=== PATIENT | female | born 1990 | race Caucasian/White ===

== ENCOUNTER 2017-02-22 13:51 | Inpatient (IN) | payer BC ==
[2017-02-22 17:08] LABS: BASO % 0.2 % (0.0-2.0); EOS # 0.1 K/uL (0.0-0.7); EOS % 1.5 % (0.0-4.0); HEMATOCRIT 35.4 % (34.0-47.0); LYMPH % 17.1 % (20.0-40.0); MEAN CELL VOLUME 81.3 fL (81.0-99.0); MEAN CORPUSCULAR HEMOGLOBIN 26.9 pg (27.0-31.0); MEAN CORPUSCULAR HGB CONC 33.1 g/dL (33.0-37.0); MEAN PLATELET VOLUME 9.7 fL (7.2-11.7); MONO # 0.3 K/uL (0.0-0.8); MONO % 5.4 % (0.0-10.0); RED CELL DISTRIBUTION WIDTH 13.8 % (11.5-14.5); WHITE BLOOD COUNT 5.6 K/uL (4.8-10.8)
[2017-02-22 17:12] LABS: RBC URINE < 1 /hpf (0-3); URINE BACTERIA RARE (<OCC); URINE BILIRUBIN NEGATIVE (NEGATIVE); URINE COLOR Yellow (YELLOW); URINE GLUCOSE (UA) NORMAL (Normal); URINE KETONE NEGATIVE (NEGATIVE); URINE LEUKOCYTE ESTERASE NEG Leu/uL (Negative); URINE PROTEIN NEGATIVE (NEGATIVE); URINE UROBILINOGEN NORMAL mg/dL (0.2-1.0); WBC URINE < 1 /hpf (0-5)
[2017-02-22 17:14] LABS: URINE BLOOD NEGATIVE (NEGATIVE)
[2017-02-22 17:21] LABS: ALKALINE PHOSPHATASE 104 U/L (38-126); ALT/SGPT 34 U/L (9-52); AST/SGOT 40 U/L (14-36); BILIRUBIN,TOTAL 0.6 mg/dL (0.2-1.3); BLOOD UREA NITROGEN 12 mg/dL (7-17); CALCIUM 7.8 mg/dl (8.6-10.4); CARBON DIOXIDE 26 mmol/L (22-30); CHLORIDE 101 mmol/L (98-107); GFR AFRICAN-AMERICAN > 60; GLUCOSE,RANDOM 76 mg/dL (65-105); POTASSIUM 3.7 mmol/L (3.6-5.2); SODIUM 133 mmol/L (132-148); TOTAL PROTEIN 8.4 g/dL (6.3-8.3)
[2017-02-22 17:23] LABS: INR 1.1
[2017-02-22 17:29] LABS: ALB/GLOB RATIO 0.7 (1.0-2.1)
--- NOTE | 2017-02-22 18:34 | C.PDOC ---
History Of Present Illness Pt c/o left sided chest pain. Time Seen by Provider: 02/22/17 16:02 Chief Complaint (Nursing): Chest Pain History Per: Patient Onset/Duration Of Symptoms: Days (about 2 months), Persistent Current Symptoms Are (Timing): Still Present Severity: Moderate Quality: "Pain" Modifying Factors: Other Indicated Below Exacerbating Factors: Movement, Deep Breathing Alleviating Factors: None Additional History Per: Prior Records Past Medical History Reviewed: Historical Data, Nursing Documentation, Vital Signs Vital Signs: Last Vital Signs Temp 98.2 F 02/22/17 14:30 Pulse 82 02/22/17 18:28 Resp 16 02/22/17 18:28 BP 102/62 02/22/17 18:28 Pulse Ox 97 02/22/17 18:36 - Medical History PMH: No Chronic Diseases Surgical History: Appendectomy, Family History: States: Unknown Family Hx - Social History Hx Tobacco Use: No Hx Alcohol Use: No Hx Substance Use: No - Immunization History Hx Tetanus Toxoid Vaccination: No Hx Influenza Vaccination: No Hx Pneumococcal Vaccination: No Review Of Systems Except As Marked, All Systems Reviewed And Found Negative. Constitutional: Negative for: Fever Cardiovascular: Positive for: Chest Pain (left) Respiratory: Positive for: Pleuritic Pain (left). Negative for: Hemoptysis Gastrointestinal: Negative for: Vomiting, Abdominal Pain, Diarrhea Musculoskeletal: Negative for: Neck Pain, Back Pain, Leg Pain Skin: Negative for: Rash Neurological: Negative for: Weakness, Numbness, Seizures, Altered Mental Status Physical Exam - Physical Exam Appears: Non-toxic, No Acute Distress Skin: Normal Color, Warm, Dry, No Rash Head: Atraumatic, Normacephalic Eye(s): bilateral: Normal Inspection, PERRL, EOMI Neck: Normal ROM, Supple Chest: Symmetrical, No Deformity, No Tenderness Cardiovascular: Rhythm Regular Respiratory: Normal Breath Sounds, No Accessory Muscle Use Gastrointestinal/Abdominal: Soft, No Tenderness Back: No CVA Tenderness Extremity: Normal ROM, No Pedal Edema, No Calf Tenderness Neurological/Psych: Oriented x3, Normal Motor, Normal Sensation ED Course And Treatment - Laboratory Results Result Diagrams: 02/22/17 17:02 02/22/17 17:02 Interpretation Of Abnormal: Elevated D-Dimer Urine POC: Negative ECG: Interpreted By Me, Viewed By Me ECG Rhythm: Sinus Rhythm ECG Interpretation: No Acute Changes Rate From EC O2 Sat by Pulse Oximetry: 97 Pulse Ox Interpretation: Normal Disposition - Disposition Disposition Time: 19:00 Condition: FAIR - Clinical Impression Clinical Impression: Left sided chest pain Physician Patient Turnover Patient Signed Over To: Julisa Sousa Handoff Comments: to f/up CTA of chest to r/o PE.
[2017-02-22] MEDS ORDERED: Iodixanol 320 MG/ML 100 ML BOTTLE IV ONE (18:46)
--- NOTE | 2017-02-22 19:52 | CT ---
EXAM: CT Angiography Chest With Intravenous Contrast CLINICAL HISTORY: 26 years old, female; Pain; Chest pain; Left-sided chest pain; Additional info: Left chest pain. Positive ddimer. R/O pe TECHNIQUE: Axial computed tomographic angiography images of the chest with intravenous contrast using pulmonary embolism protocol. All CT scans at this facility use one or more dose reduction techniques, viz.: automated exposure control; ma/kV adjustment per patient size (including targeted exams where dose is matched to indication; i.e. head); or iterative reconstruction technique. MIP reconstructed images were created and reviewed. Coronal and sagittal reformatted images were created and reviewed. CONTRAST: 100 mL of visipaque 320 administered intravenously. COMPARISON: No relevant prior studies available. FINDINGS: Pulmonary arteries: No pulmonary embolism. Aorta: No thoracic aortic aneurysm. No dissection. Lungs: Moderate left-sided pleural effusion, with adjacent compressive atelectasis. Consolidation of the left lung base is also noted. Pleural spaces: As above. Heart: Right atrial enlargement, without overall cardiomegaly. No significant pericardial effusion. Bones: No acute or subacute fracture. Lymph nodes: No pathologically enlarged lymph nodes. IMPRESSION: No pulmonary embolism. Moderate left-sided pleural effusion with adjacent compressive atelectasis and consolidation of the left lung base.
[2017-02-23 04:46] LABS: BASO % 0.3 % (0.0-2.0); EOS # 0.1 K/uL (0.0-0.7); EOS % 4.2 % (0.0-4.0); HEMATOCRIT 31.7 % (34.0-47.0); LYMPH # 0.8 K/uL (1.0-4.3); LYMPH % 23.2 % (20.0-40.0); MEAN CELL VOLUME 81.2 fL (81.0-99.0); MEAN CORPUSCULAR HEMOGLOBIN 26.3 pg (27.0-31.0); MEAN CORPUSCULAR HGB CONC 32.3 g/dL (33.0-37.0); MEAN PLATELET VOLUME 9.8 fL (7.2-11.7); MONO # 0.2 K/uL (0.0-0.8); MONO % 7.2 % (0.0-10.0); RED CELL DISTRIBUTION WIDTH 13.6 % (11.5-14.5); WHITE BLOOD COUNT 3.2 K/uL (4.8-10.8)
[2017-02-23 05:32] LABS: THYROID STIMULATING HORMONE 3.22 mIU/L (0.46-4.68)
[2017-02-23 05:49] LABS: ALB/GLOB RATIO 0.7 (1.0-2.1); ALKALINE PHOSPHATASE 99 U/L (38-126); ALT/SGPT 42 U/L (9-52); AST/SGOT 36 U/L (14-36); BILIRUBIN,TOTAL 0.5 mg/dL (0.2-1.3); BLOOD UREA NITROGEN 14 mg/dL (7-17); CALCIUM 7.5 mg/dl (8.6-10.4); CARBON DIOXIDE 24 mmol/L (22-30); CHLORIDE 105 mmol/L (98-107); GFR AFRICAN-AMERICAN > 60; GLUCOSE,RANDOM 79 mg/dL (65-105); POTASSIUM 3.9 mmol/L (3.6-5.2); SODIUM 140 mmol/L (132-148); TOTAL PROTEIN 7.3 g/dL (6.3-8.3)
--- NOTE | 2017-02-23 09:22 | CT ---
PROCEDURE: CT HEAD WITHOUT CONTRAST. HISTORY: DIZZINESS COMPARISON: None available. TECHNIQUE: Axial computed tomography images were obtained through the head/brain without intravenous contrast. Radiation dose: Total exam DLP = 773.51 mGy-cm. This CT exam was performed using one or more of the following dose reduction techniques: Automated exposure control, adjustment of the mA and/or kV according to patient size, and/or use of iterative reconstruction technique. FINDINGS: HEMORRHAGE: No intracranial hemorrhage. BRAIN: No mass effect or edema. No atrophy or chronic microvascular ischemic changes. VENTRICLES: Unremarkable. No hydrocephalus. CALVARIUM: Unremarkable. PARANASAL SINUSES: Unremarkable as visualized. No significant inflammatory changes. MASTOID AIR CELLS: Unremarkable as visualized. No inflammatory changes. OTHER FINDINGS: None. IMPRESSION: Normal CT of the Head. No intracranial mass, hemorrhage or evidence of acute infarct.
[2017-02-23] MEDS ORDERED: Enoxaparin 30 mg Syringe ONE (09:57)
[2017-02-23] MEDS ORDERED: Pantoprazole 40 mg EC Tab PO ONE (09:58)
[2017-02-23] MEDS ORDERED: Enoxaparin 60 mg Syringe SC SCH (10:00)
[2017-02-23] MEDS: Pantoprazole 40 mg EC Tab PO SCH (10:07)
--- NOTE | 2017-02-23 18:20 | CP.PCM.CON ---
History of Present Illness - History of Present Illness History of Present Illness: reason for consultation: pleural effusion 26-year-old female with no significant past medical history presented to emergency room complaining cough left-sided chest pain associated with shortness of breath and joint pains. patient states she continues to fell pain in her left chest that is worse with deep inspiration for the past 2-3 weeks She has flet intermittently short of breath and has intermittent fever but no cough. patient states she was admitted at [facility] and had extensive workup done Review of Systems - Review of Systems All systems: reviewed and no additional remarkable complaints except (shortness of breath, sharp left-sided chest pain on deep inspiration) Past Patient History - Past Medical History & Family History Past Medical History?: Yes - Past Social History Smoking Status: Never Smoked - CARDIAC Hx Cardiac Disorders: No - PULMONARY Hx Respiratory Disorders: No - NEUROLOGICAL Hx Neurological Disorder: No - HEENT Hx HEENT Problems: No - RENAL Hx Chronic Kidney Disease: No - ENDOCRINE/METABOLIC Hx Endocrine Disorders: No - HEMATOLOGICAL/ONCOLOGICAL Hx Blood Disorders: No - INTEGUMENTARY Hx Dermatological Problems: No - MUSCULOSKELETAL/RHEUMATOLOGICAL Hx Musculoskeletal Disorders: No Hx Falls: No - GASTROINTESTINAL Hx Gastrointestinal Disorders: No - GENITOURINARY/GYNECOLOGICAL Hx Genitourinary Disorders: No - PSYCHIATRIC Hx Psychophysiologic Disorder: No Hx Substance Use: No - SURGICAL HISTORY Hx Surgeries: Yes Hx Appendectomy: Yes Other/Comment: - ANESTHESIA Hx Anesthesia: Yes Hx Anesthesia Reactions: No Meds Allergies/Adverse Reactions: Allergies Allergy/AdvReac Type Severity Reaction Status Date / Time No Known Allergies Allergy Verified 02/22/17 14:34 - Medications Medications: Current Medications Aspirin (Aspirin) 325 mg PO DAILY [facility] Last Admin: 02/23/17 10:07 Dose: 325 mg Enoxaparin Sodium (Lovenox) 60 mg SC DAILY [facility] Last Admin: 02/23/17 10:07 Dose: 60 mg Cefepime HCl (Maxipime Iv 1 Gm Premix) 1 gm in 50 mls @ 100 mls/hr IVPB Q12H [facility] Meclizine HCl (Antivert) 25 mg PO TID [facility] Last Admin: 02/23/17 17:07 Dose: 25 mg Pantoprazole Sodium (Protonix Ec Tab) 40 mg PO DAILY [facility] Last Admin: 02/23/17 10:07 Dose: 40 mg Tramadol HCl (Ultram) 50 mg PO Q6H PRN PRN Reason: Pain, severe (8-10) Last Admin: 02/23/17 02:00 Dose: 50 mg Physical Exam - Head Exam Head Exam: ATRAUMATIC, NORMOCEPHALIC - Eye Exam Eye Exam: Normal appearance - ENT Exam ENT Exam: Mucous Membranes Moist - Neck Exam Neck exam: Positive for: Normal Inspection - Respiratory Exam Respiratory Exam: Decreased Breath Sounds - Cardiovascular Exam Cardiovascular Exam: REGULAR RHYTHM Results - Vital Signs Recent Vital Signs: Last Vital Signs Temp 98.8 F 02/23/17 16:30 Pulse 75 02/23/17 16:30 Resp 20 02/23/17 16:30 BP 93/59 L 02/23/17 16:30 Pulse Ox 100 02/23/17 16:30 - Labs Result Diagrams: 02/23/17 04:42 02/23/17 04:42 Labs: Laboratory Results - last 24 hr 02/23/17 02/23/17 02/23/17 04:42 04:42 04:42 WBC 3.2 L RBC 3.91 Hgb 10.3 L Hct 31.7 L MCV 81.2 MCH 26.3 L MCHC 32.3 L RDW 13.6 Plt Count 180 MPV 9.8 Neut % (Auto) 65.1 Lymph % (Auto) 23.2 [place] % (Auto) 7.2 Eos % (Auto) 4.2 H Baso % (Auto) 0.3 Neut # 2.1 Lymph # 0.8 L [place] # 0.2 Eos # 0.1 Baso # 0.0 ESR 52 H Sodium 140 Potassium 3.9 Chloride 105 Carbon Dioxide 24 Anion Gap 14 BUN 14 Creatinine 0.7 Est GFR ( Amer) > 60 Est GFR (Non-Af Amer) > 60 Random Glucose 79 Calcium 7.5 L Total Bilirubin 0.5 AST 36 ALT 42 Alkaline Phosphatase 99 C-React Prot High Sens 10.96 H Total Protein 7.3 Albumin 3.0 L Globulin 4.3 H Albumin/Globulin Ratio 0.7 L TSH 3rd Generation 3.22 Anti-Staphylolysin O 02/23/17 02/23/17 10:09 10:47 WBC RBC Hgb Hct MCV MCH MCHC RDW Plt Count MPV Neut % (Auto) Lymph % (Auto) [place] % (Auto) Eos % (Auto) Baso % (Auto) Neut # Lymph # [place] # Eos # Baso # ESR Sodium Potassium Chloride Carbon Dioxide Anion Gap BUN Creatinine Est GFR ( Amer) Est GFR (Non-Af Amer) Random Glucose Calcium Total Bilirubin AST ALT Alkaline Phosphatase C-React Prot High Sens 11.14 H Total Protein Albumin Globulin Albumin/Globulin Ratio TSH 3rd Generation Anti-Staphylolysin O Negative Assessment & Plan (1) Pleural effusion Status: Acute Comment: left-sided pleural effusion with consolidation. Rule out parapneumonic effusion. IV antibiotics. Thoracentesis by IR. Pro calcitonin level. Consider infectious disease consult. Autoimmune workup (2) Left sided chest pain Status: Acute
--- NOTE | 2017-02-23 18:56 | CP.PCM.HP ---
History of Present Illness - History of Present Illness History of Present Illness: A 26-year-old female with no past history presents with C/Ochest pain. C/Ochest pain for 2 months. Insidious in onset, progressive, persistent, near continuous, moderate in intensity, on the left side of the chest, nonradiating, aggravated with deep breathing and movement, intensity of 4/10, partly relieved by pain Medications. No C/Ofever, cough, dyspnea, PND, orthopnea, swelling of extremities. Patient states that she has been evaluated at a clinic in [facility] for the same. Present on Admission - Present on Admission Any Indicators Present on Admission: No Past Patient History - Past Medical History & Family History Past Medical History?: Yes - Past Social History Smoking Status: Never Smoked - CARDIAC Hx Cardiac Disorders: No - PULMONARY Hx Respiratory Disorders: No - NEUROLOGICAL Hx Neurological Disorder: No - HEENT Hx HEENT Problems: No - RENAL Hx Chronic Kidney Disease: No - ENDOCRINE/METABOLIC Hx Endocrine Disorders: No - HEMATOLOGICAL/ONCOLOGICAL Hx Blood Disorders: No - INTEGUMENTARY Hx Dermatological Problems: No - MUSCULOSKELETAL/RHEUMATOLOGICAL Hx Musculoskeletal Disorders: No Hx Falls: No - GASTROINTESTINAL Hx Gastrointestinal Disorders: No - GENITOURINARY/GYNECOLOGICAL Hx Genitourinary Disorders: No - PSYCHIATRIC Hx Psychophysiologic Disorder: No Hx Substance Use: No - SURGICAL HISTORY Hx Surgeries: Yes Hx Appendectomy: Yes Other/Comment: - ANESTHESIA Hx Anesthesia: Yes Hx Anesthesia Reactions: No Meds Allergies/Adverse Reactions: Allergies Allergy/AdvReac Type Severity Reaction Status Date / Time No Known Allergies Allergy Verified 02/22/17 14:34 Physical Exam - Constitutional Appears: Well - Head Exam Head Exam: ATRAUMATIC, NORMAL INSPECTION, NORMOCEPHALIC - Eye Exam Eye Exam: EOMI, Normal appearance, PERRL Pupil Exam: NORMAL ACCOMODATION, PERRL - ENT Exam ENT Exam: Mucous Membranes Moist, Normal Exam - Neck Exam Neck exam: Positive for: Normal Inspection - Respiratory Exam Respiratory Exam: Decreased Breath Sounds - Cardiovascular Exam Cardiovascular Exam: REGULAR RHYTHM, +S1, +S2 - GI/Abdominal Exam GI & Abdominal Exam: Diminished Bowel Sounds, Soft - Rectal Exam Rectal Exam: Deferred Results - Vital Signs Recent Vital Signs: Last Vital Signs Temp 98.8 F 02/23/17 16:30 Pulse 75 02/23/17 16:30 Resp 20 02/23/17 16:30 BP 93/59 L 02/23/17 16:30 Pulse Ox 100 02/23/17 16:30 - Labs Result Diagrams: 02/26/17 08:20 02/23/17 04:42 Labs: Laboratory Results - last 24 hr 02/23/17 02/23/17 02/23/17 04:42 04:42 04:42 WBC 3.2 L RBC 3.91 Hgb 10.3 L Hct 31.7 L MCV 81.2 MCH 26.3 L MCHC 32.3 L RDW 13.6 Plt Count 180 MPV 9.8 Neut % (Auto) 65.1 Lymph % (Auto) 23.2 [place] % (Auto) 7.2 Eos % (Auto) 4.2 H Baso % (Auto) 0.3 Neut # 2.1 Lymph # 0.8 L [place] # 0.2 Eos # 0.1 Baso # 0.0 ESR 52 H Sodium 140 Potassium 3.9 Chloride 105 Carbon Dioxide 24 Anion Gap 14 BUN 14 Creatinine 0.7 Est GFR ( Amer) > 60 Est GFR (Non-Af Amer) > 60 Random Glucose 79 Calcium 7.5 L Total Bilirubin 0.5 AST 36 ALT 42 Alkaline Phosphatase 99 C-React Prot High Sens 10.96 H Total Protein 7.3 Albumin 3.0 L Globulin 4.3 H Albumin/Globulin Ratio 0.7 L TSH 3rd Generation 3.22 Anti-Staphylolysin O 02/23/17 02/23/17 10:09 10:47 WBC RBC Hgb Hct MCV MCH MCHC RDW Plt Count MPV Neut % (Auto) Lymph % (Auto) [place] % (Auto) Eos % (Auto) Baso % (Auto) Neut # Lymph # [place] # Eos # Baso # ESR Sodium Potassium Chloride Carbon Dioxide Anion Gap BUN Creatinine Est GFR ( Amer) Est GFR (Non-Af Amer) Random Glucose Calcium Total Bilirubin AST ALT Alkaline Phosphatase C-React Prot High Sens 11.14 H Total Protein Albumin Globulin Albumin/Globulin Ratio TSH 3rd Generation Anti-Staphylolysin O Negative
[2017-02-23] MEDS: Cefepime IV 1 gm in Dextrose 1 GM/50 ML BAG IVPB SCH (19:07)
--- NOTE | 2017-02-23 21:51 | CARD ---
APPROVED REPORT EKG Measurement Heart [id number] <Conclusion> Normal sinus rhythm Normal ECG
[2017-02-24] MEDS: Cefepime IV 1 gm in Dextrose 1 GM/50 ML BAG IVPB SCH ×2 (08:13→18:43)
[2017-02-24] MEDS: Pantoprazole 40 mg EC Tab PO SCH (10:20)
[2017-02-24] MEDS: Enoxaparin 40 mg Syringe SC SCH (10:20)
--- NOTE | 2017-02-24 12:31 | CP.PCM.PN ---
Subjective - Date & Time of Evaluation Date of Evaluation: 02/24/17 Time of Evaluation: 10:15 - Subjective Subjective: patient seen and examined Still complaining of pain on left side of the chest on deep inspiration Denies cough, denies fever chills For thoracentesis by IR Continue antibiotics Consider ID evaluation Objective - Vital Signs/Intake and Output Vital Signs (last 24 hours): Temp Pulse Resp BP Pulse Ox 98.1 F 66 20 100/63 99 02/24/17 08:45 02/24/17 08:45 02/24/17 08:45 02/24/17 08:45 02/24/17 08:45 Intake and Output: 02/24/17 02/24/17 06:59 18:59 Intake Total 540 Balance 540 - Medications Medications: Current Medications Aspirin (Aspirin) 325 mg PO DAILY [facility] Last Admin: 02/24/17 10:20 Dose: 325 mg Enoxaparin Sodium (Lovenox) 40 mg SC DAILY [facility] Last Admin: 02/24/17 10:20 Dose: Not Given Cefepime HCl (Maxipime Iv 1 Gm Premix) 1 gm in 50 mls @ 100 mls/hr IVPB Q12H [facility] Last Admin: 02/24/17 08:13 Dose: 100 mls/hr Meclizine HCl (Antivert) 25 mg PO TID [facility] Last Admin: 02/24/17 10:20 Dose: 25 mg Pantoprazole Sodium (Protonix Ec Tab) 40 mg PO DAILY [facility] Last Admin: 02/24/17 10:20 Dose: 40 mg Tramadol HCl (Ultram) 50 mg PO Q6H PRN PRN Reason: Pain, severe (8-10) Last Admin: 02/23/17 02:00 Dose: 50 mg - Labs Labs: 02/23/17 04:42 02/23/17 04:42 PT 11.9 SECONDS (9.7-12.2) 02/22/17 17:02 INR 1.1 02/22/17 17:02 APTT 32 SECONDS (21-34) 02/22/17 17:02 Assessment and Plan (1) Pleural effusion Status: Acute (2) Left sided chest pain Status: Acute
--- NOTE | 2017-02-24 13:27 | PCM.SURG1 ---
Surgeon's Initial Post Op Note - Surgeon's Notes Surgeon: Ananda Rea MD Gas Golf Cart Repairer: NONE Type of Anesthesia: Local Pre-Operative Diagnosis: Left pleural effusion Operative Findings: US showed a small left effusion Post-Operative Diagnosis: Left pleural effusion Operation Performed: US guided left thoracentesis Specimen/Specimens Removed: 500 cc of straw colored fluid Estimated Blood Loss: EBL {In ML}: 0 Blood Products Given: N/A Drains Used: No Drains Post-Op Condition: Fair Date of Surgery/Procedure: 02/24/17 Time of Surgery/Procedure: 13:20
[2017-02-24 14:12] LABS: BODY FLUID TYPE PLEURAL
[2017-02-24 15:39] LABS: BF GROSS APPEARANCE CLOUDY (CLEAR); BODY FLUID TOTAL COUNT 100 (0-0)
[2017-02-24 19:39] LABS: RNP Interpretation Positive (Negative)
[2017-02-24 19:39] LABS: Interpretation Negative (Negative)
--- NOTE | 2017-02-24 20:01 | CP.PCM.PN ---
Subjective - Date & Time of Evaluation Date of Evaluation: 02/24/17 Time of Evaluation: 11:40 - Subjective Subjective: clinically same Objective - Vital Signs/Intake and Output Vital Signs (last 24 hours): Temp Pulse Resp BP Pulse Ox 98.2 F 87 20 96/64 L 100 02/24/17 15:10 02/24/17 15:10 02/24/17 15:10 02/24/17 15:10 02/24/17 15:10 Intake and Output: 02/24/17 02/25/17 18:59 06:59 Intake Total 750 Balance 750 - Medications Medications: Current Medications Aspirin (Aspirin) 325 mg PO DAILY [facility] Last Admin: 02/24/17 10:20 Dose: 325 mg Enoxaparin Sodium (Lovenox) 40 mg SC DAILY [facility] Last Admin: 02/24/17 10:20 Dose: Not Given Cefepime HCl (Maxipime Iv 1 Gm Premix) 1 gm in 50 mls @ 100 mls/hr IVPB Q12H [facility] Last Admin: 02/24/17 18:43 Dose: 100 mls/hr Meclizine HCl (Antivert) 25 mg PO TID [facility] Last Admin: 02/24/17 14:54 Dose: 25 mg Pantoprazole Sodium (Protonix Ec Tab) 40 mg PO DAILY [facility] Last Admin: 02/24/17 10:20 Dose: 40 mg Tramadol HCl (Ultram) 50 mg PO Q6H PRN PRN Reason: Pain, severe (8-10) Last Admin: 02/23/17 02:00 Dose: 50 mg - Labs Labs: 02/23/17 04:42 02/23/17 04:42 PT 11.9 SECONDS (9.7-12.2) 02/22/17 17:02 INR 1.1 02/22/17 17:02 APTT 32 SECONDS (21-34) 02/22/17 17:02 - Constitutional Appears: Well - Head Exam Head Exam: ATRAUMATIC, NORMAL INSPECTION, NORMOCEPHALIC - Eye Exam Eye Exam: EOMI, Normal appearance, PERRL Pupil Exam: NORMAL ACCOMODATION, PERRL - ENT Exam ENT Exam: Mucous Membranes Moist, Normal Exam - Neck Exam Neck Exam: Full ROM, Normal Inspection. absent: Lymphadenopathy - Respiratory Exam Respiratory Exam: Decreased Breath Sounds - Cardiovascular Exam Cardiovascular Exam: REGULAR RHYTHM, +S1, +S2 - GI/Abdominal Exam GI & Abdominal Exam: Soft, Diminished Bowel Sounds - Rectal Exam Rectal Exam: Deferred Assessment and Plan (1) Left sided chest pain Status: Acute (2) Pleural effusion Status: Acute (3) Pneumonia Status: Acute (4) Systemic lupus Status: Acute (5) Weight loss, abnormal Status: Acute (6) Anemia Status: Resolved (7) Bacterial vaginosis Status: Acute - Assessment and Plan (Free Text) Plan: Patient examined. Patient better. EKG normal. CT angios chest shows moderate left-sided pleural effusion with left basal atelectasis and left-sided consolidation. Ultrasound-guided left pleural effusion thoracocentesis done under [place]. Continue aspirin. Continue cefepime. Continue supportive care.
--- NOTE | 2017-02-24 22:59 | CP.PCM.CON ---
History of Present Illness - History of Present Illness History of Present Illness: 26 yearold female with left sided chest pain and shortness of breath for the past two months. Patient was evaluated in the [facility] ER and found to have a left sided pleural effusion. Admission was advisedand hair loss. . Further history reveals a 15 pound weight loss, diffused joint pains and hair loss. Lab studies demonstrates an elevated sedimentation rate, positive IVIS with a titer of 1/320 and an a strongly positive DIRECT SERVICE PROVIDER greater than 8. Patient has Systemic Lupus. Review of Systems - Constitutional Constitutional: Malaise, Weight Loss, Weakness - Cardiovascular Cardiovascular: Palpitations - Respiratory Respiratory: Dyspnea on Exertion - Gastrointestinal Gastrointestinal: Cramping - Musculoskeletal Musculoskeletal: Arthralgias - Neurological Neurological: Weakness - Psychiatric Psychiatric: Change in Appetite Past Patient History - Past Medical History & Family History Past Medical History?: Yes - Past Social History Smoking Status: Never Smoked Chewing Tobacco Use: No Cigar Use: No Alcohol: Occasional Drugs: Denies - CARDIAC Hx Cardiac Disorders: No - PULMONARY Hx Respiratory Disorders: No - NEUROLOGICAL Hx Neurological Disorder: No - HEENT Hx HEENT Problems: No - RENAL Hx Chronic Kidney Disease: No - ENDOCRINE/METABOLIC Hx Endocrine Disorders: No - HEMATOLOGICAL/ONCOLOGICAL Hx Blood Disorders: No - INTEGUMENTARY Hx Dermatological Problems: No - MUSCULOSKELETAL/RHEUMATOLOGICAL Hx Musculoskeletal Disorders: No Hx Falls: No - GASTROINTESTINAL Hx Gastrointestinal Disorders: No - GENITOURINARY/GYNECOLOGICAL Hx Genitourinary Disorders: No - PSYCHIATRIC Hx Psychophysiologic Disorder: No Hx Substance Use: No - SURGICAL HISTORY Hx Surgeries: Yes Hx Appendectomy: Yes Other/Comment: - ANESTHESIA Hx Anesthesia: Yes Hx Anesthesia Reactions: No Meds Allergies/Adverse Reactions: Allergies Allergy/AdvReac Type Severity Reaction Status Date / Time No Known Allergies Allergy Verified 02/22/17 14:34 - Medications Medications: Current Medications Aspirin (Aspirin) 325 mg PO DAILY [facility] Last Admin: 02/24/17 10:20 Dose: 325 mg Enoxaparin Sodium (Lovenox) 40 mg SC DAILY [facility] Last Admin: 02/24/17 10:20 Dose: Not Given Cefepime HCl (Maxipime Iv 1 Gm Premix) 1 gm in 50 mls @ 100 mls/hr IVPB Q12H [facility] Last Admin: 02/24/17 18:43 Dose: 100 mls/hr Meclizine HCl (Antivert) 25 mg PO TID [facility] Last Admin: 02/24/17 14:54 Dose: 25 mg Pantoprazole Sodium (Protonix Ec Tab) 40 mg PO DAILY [facility] Last Admin: 02/24/17 10:20 Dose: 40 mg Tramadol HCl (Ultram) 50 mg PO Q6H PRN PRN Reason: Pain, severe (8-10) Last Admin: 02/23/17 02:00 Dose: 50 mg Physical Exam - Constitutional Appears: Chronically Ill - Head Exam Head Exam: NORMOCEPHALIC - Eye Exam Eye Exam: PERRL Pupil Exam: NORMAL ACCOMODATION - ENT Exam ENT Exam: Normal Exam - Neck Exam Neck exam: Positive for: Normal Inspection - Respiratory Exam Respiratory Exam: Decreased Breath Sounds - Cardiovascular Exam Cardiovascular Exam: REGULAR RHYTHM - GI/Abdominal Exam GI & Abdominal Exam: Normal Bowel Sounds - Rectal Exam Rectal Exam: Deferred - Exam External exam: NORMAL EXTERNAL EXAM - Back Exam Back exam: paraspinal tenderness - Neurological Exam Neurological exam: Alert - Psychiatric Exam Psychiatric exam: Depressed - Skin Skin Exam: Dry Results - Vital Signs Recent Vital Signs: Last Vital Signs Temp 98.2 F 02/24/17 15:10 Pulse 98 H 02/24/17 19:40 Resp 18 02/24/17 19:40 BP 101/66 02/24/17 19:40 Pulse Ox 100 02/24/17 19:40 - Labs Result Diagrams: 02/23/17 04:42 02/23/17 04:42 Labs: Laboratory Results - last 24 hr 02/23/17 02/23/17 02/23/17 08:08 10:47 10:47 Fluid Source Fluid Appearance Fluid WBC Fluid RBC Fluid Tot Cell Count Fluid Neutrophils Fluid Lymphocytes Fld Monocyte/Macrophag Fluid Comment IVIS 6 Profile Positive H IVIS Titer 1:320 H IVIS Pattern Homogenous H SS-A Antibody <1.0 SS-B Ab Interp Negative SS-B Antibody <1.0 DIRECT SERVICE PROVIDER Antibody >8.0 H DIRECT SERVICE PROVIDER Antibody Interp Positive H Double Strand DNA Ab 172 H Anti-Staphylolysin O Negative 02/24/17 14:11 Fluid Source Pleural Fluid Appearance Cloudy Fluid WBC 1972.0 H Fluid RBC 346.0 H Fluid Tot Cell Count 100 H Fluid Neutrophils 1.0 H Fluid Lymphocytes 23.0 H Fld Monocyte/Macrophag 2 H Fluid Comment IVIS 6 Profile IVIS Titer IVIS Pattern SS-A Antibody SS-B Ab Interp SS-B Antibody DIRECT SERVICE PROVIDER Antibody DIRECT SERVICE PROVIDER Antibody Interp Double Strand DNA Ab Anti-Staphylolysin O Assessment & Plan (1) Systemic lupus Status: Acute (2) Anemia Status: Acute (3) Left sided chest pain Status: Acute (4) Pleural effusion Status: Acute
[2017-02-25] MEDS: Cefepime IV 1 gm in Dextrose 1 GM/50 ML BAG IVPB SCH (06:45)
[2017-02-25] MEDS: Pantoprazole 40 mg EC Tab PO SCH (10:00)
[2017-02-25] MEDS: Enoxaparin 40 mg Syringe SC SCH (10:01)
--- NOTE | 2017-02-25 10:08 | CP.PCM.PN ---
Subjective - Date & Time of Evaluation Date of Evaluation: 02/25/17 Time of Evaluation: 08:45 - Subjective Subjective: patient seen and examined Status post thoracentesis and 500 cc off straw-colored fluid removed Patient breathing better with less pain Blood work consistent with lupus erythematosus Objective - Vital Signs/Intake and Output Vital Signs (last 24 hours): Temp Pulse Resp BP Pulse Ox 98.5 F 83 16 100/62 97 02/25/17 07:25 02/25/17 07:25 02/25/17 07:25 02/25/17 07:25 02/25/17 07:25 Intake and Output: 02/25/17 02/25/17 06:59 18:59 Intake Total 600 Balance 600 - Medications Medications: Current Medications Aspirin (Aspirin) 325 mg PO DAILY [facility] Last Admin: 02/25/17 09:59 Dose: 325 mg Enoxaparin Sodium (Lovenox) 40 mg SC DAILY [facility] Last Admin: 02/25/17 10:01 Dose: 40 mg Cefepime HCl (Maxipime Iv 1 Gm Premix) 1 gm in 50 mls @ 100 mls/hr IVPB Q12H [facility] Last Admin: 02/25/17 06:45 Dose: 100 mls/hr Meclizine HCl (Antivert) 25 mg PO TID [facility] Last Admin: 02/25/17 09:59 Dose: 25 mg Pantoprazole Sodium (Protonix Ec Tab) 40 mg PO DAILY [facility] Last Admin: 02/25/17 10:00 Dose: 40 mg Tramadol HCl (Ultram) 50 mg PO Q6H PRN PRN Reason: Pain, severe (8-10) Last Admin: 02/23/17 02:00 Dose: 50 mg - Labs Labs: 02/23/17 04:42 02/23/17 04:42 PT 11.9 SECONDS (9.7-12.2) 02/22/17 17:02 INR 1.1 02/22/17 17:02 APTT 32 SECONDS (21-34) 02/22/17 17:02 - Head Exam Head Exam: ATRAUMATIC, NORMOCEPHALIC - Eye Exam Eye Exam: Normal appearance - ENT Exam ENT Exam: Mucous Membranes Moist - Neck Exam Neck Exam: Normal Inspection - Respiratory Exam Respiratory Exam: Clear to Ausculation Bilateral - Cardiovascular Exam Cardiovascular Exam: REGULAR RHYTHM - GI/Abdominal Exam GI & Abdominal Exam: Soft, Normal Bowel Sounds - Extremities Exam Extremities Exam: Normal Inspection - Neurological Exam Neurological Exam: Awake Assessment and Plan (1) Systemic lupus Assessment & Plan: Start IV steroids for now Followup if necessary Treatment for systemic lupus Status: Acute (2) Pleural effusion Status: Acute (3) Left sided chest pain Status: Acute
[2017-02-25] MEDS ORDERED: Azithromycin 500mg/250ML NS 500 MG/250 ML BAG IVPB SCH (12:15)
[2017-02-25] MEDS: MethylPREDNISolone 40 mg Vial IV SCH ×2 (13:00→21:03)
--- NOTE | 2017-02-25 13:56 | CP.PCM.CON ---
History of Present Illness - History of Present Illness History of Present Illness: INFECTIOUS DISEASE CONSULT; HPI; 26-year-old female was admitted to [facility] (Former[facility]) on 02/22/17 with left-sided chest pains and shortness of breath. Patient also complained of joint pains and weight loss of 15 pounds during the past [address] of the chest with PE protocol in ER showed no evidence of pulmonary embolism with moderate left-sided pleural effusion, compressive atelectasis and consolidation of the left lung base. Patient was empirically started on IV antibiotics including cefepime and Zithromax. Patient also had left-sided thoracentesis which showed no growth fluid/fluid for 24 hours. 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 Patient also is noted to be leukopenic with a WBC count of 3.2 and elevated CRP and high sedimentation rate. Patient continues to have left-sided pleuritic chest pain. Patient denies any previous history of TB or any other illness. PATIENT DENIES ANY SICK CONTACTS.IS AND HAS 2 KIDS 4 AND 7 YEARS OLD AND ALL ARE HEALTHY. Infectious disease consultation requested today by PMD for evaluation of left- sided pneumonia and left pleural effusion. PATIENT DENIES ANY RASH, HEADACHES, SEIZURE DISORDER OR ANY HISTORY OF TICK BITES IN THE PAST. PATIENT PRESENTLY ON IV CEFTRIAXONE 1 G OD/AND ZITHROMAX 500 MG ONCE A DAY DAILY. PATIENT DENIES ANY NIGHT SWEATS PATIENT DENIES ANY RECENT TRAVEL. PMH: No Chronic Diseases Surgical History: Appendectomy, Family History: States: Unknown Family Hx - Social History Hx Tobacco Use: No Hx Alcohol Use: No Hx Substance Use: No - Immunization History Hx Tetanus Toxoid Vaccination: No Hx Influenza Vaccination: No Hx Pneumococcal Vaccination: No ALLERGY; NKA. MEDS REVIEWED. PATIENT ALSO STARTED ON sOLU-mEDROL 40 MG EVERY 8 HOURLY NOTED. SEE MARS. Review of Systems - Constitutional Constitutional: Fever, Weight Loss (15 POUNDS DURING PAST 2 MONTHS.). absent: Headache - EENT Eyes: absent: Change in Vision, Floaters, Other Visual Disturbances Ears: absent: Ear Discharge, Ear Pain Nose/Mouth/Throat: absent: Dysphagia, Mouth Lesions, Sore Throat, Neck Pain - Cardiovascular Cardiovascular: Chest Pain (LEFT PLEURITIC CHEST PAIN.), Dyspnea - Respiratory Respiratory: Cough, Dyspnea on Exertion. absent: Hemoptysis - Gastrointestinal Gastrointestinal: absent: Abdominal Pain, Diarrhea, Dysphagia, Nausea, Vomiting - Genitourinary Genitourinary: absent: Dysuria, Hematuria - Musculoskeletal Musculoskeletal: Myalgias, Stiffness (ARTHRALGIAS OF HANDS AND FINGERS, BOTH KNEES, ANKLES.) - Integumentary Integumentary: Change in Hair (HAIR LOSS.). absent: Rash - Neurological Neurological: absent: Headaches - Hematologic/Lymphatic Hematologic: As Per HPI. absent: Easy Bleeding, Lymphadenopathy Past Patient History - Past Medical History & Family History Past Medical History?: Yes - Past Social History Smoking Status: Never Smoked Chewing Tobacco Use: No Cigar Use: No Alcohol: Occasional Drugs: Denies - CARDIAC Hx Cardiac Disorders: No - PULMONARY Hx Respiratory Disorders: No - NEUROLOGICAL Hx Neurological Disorder: No - HEENT Hx HEENT Problems: No - RENAL Hx Chronic Kidney Disease: No - ENDOCRINE/METABOLIC Hx Endocrine Disorders: No - HEMATOLOGICAL/ONCOLOGICAL Hx Blood Disorders: No - INTEGUMENTARY Hx Dermatological Problems: No - MUSCULOSKELETAL/RHEUMATOLOGICAL Hx Musculoskeletal Disorders: No Hx Falls: No - GASTROINTESTINAL Hx Gastrointestinal Disorders: No - GENITOURINARY/GYNECOLOGICAL Hx Genitourinary Disorders: No - PSYCHIATRIC Hx Psychophysiologic Disorder: No Hx Substance Use: No - SURGICAL HISTORY Hx Surgeries: Yes Hx Appendectomy: Yes Other/Comment: - ANESTHESIA Hx Anesthesia: Yes Hx Anesthesia Reactions: No Meds Allergies/Adverse Reactions: Allergies Allergy/AdvReac Type Severity Reaction Status Date / Time No Known Allergies Allergy Verified 02/22/17 14:34 - Medications Medications: Current Medications Aspirin (Aspirin) 325 mg PO DAILY [facility] Last Admin: 02/25/17 09:59 Dose: 325 mg Enoxaparin Sodium (Lovenox) 40 mg SC DAILY [facility] Last Admin: 02/25/17 10:01 Dose: 40 mg Ceftriaxone Sodium 1 gm/ (Sodium Chloride) 100 mls @ 100 mls/hr IVPB DAILY [facility] Azithromycin (Zithromax 500mg In Ns Addvantage) 500 mg in 250 mls @ 167 mls/hr IVPB Q24H [facility] Meclizine HCl (Antivert) 25 mg PO TID [facility] Last Admin: 02/25/17 09:59 Dose: 25 mg Methylprednisolone (Solu-Medrol) 40 mg IV Q8 [facility] Pantoprazole Sodium (Protonix Ec Tab) 40 mg PO DAILY [facility] Last Admin: 02/25/17 10:00 Dose: 40 mg Tramadol HCl (Ultram) 50 mg PO Q6H PRN PRN Reason: Pain, severe (8-10) Last Admin: 02/23/17 02:00 Dose: 50 mg Physical Exam - Constitutional Appears: No Acute Distress, Cachectic - Head Exam Head Exam: NORMAL INSPECTION - Eye Exam Eye Exam: EOMI, PERRL. absent: Scleral icterus - ENT Exam ENT Exam: Normal Oropharynx - Neck Exam Neck exam: Positive for: Normal Inspection. Negative for: Meningismus - Respiratory Exam Respiratory Exam: Decreased Breath Sounds (BRONCHIAL BREATH SOUNDS LEFT BASE.) - Cardiovascular Exam Cardiovascular Exam: REGULAR RHYTHM, +S1, +S2 - GI/Abdominal Exam GI & Abdominal Exam: Normal Bowel Sounds, Soft. absent: Organomegaly, Tenderness - Extremities Exam Extremities exam: Positive for: pedal pulses present. Negative for: calf tenderness, pedal edema - Neurological Exam Neurological exam: Alert, CN II-XII Intact, Oriented x3, Reflexes Normal - Psychiatric Exam Psychiatric exam: Normal Mood - Skin Skin Exam: Dry, Normal Color, Warm Results - Vital Signs Recent Vital Signs: Last Vital Signs Temp 98.5 F 02/25/17 07:25 Pulse 83 02/25/17 07:25 Resp 16 02/25/17 07:25 BP 100/62 02/25/17 07:25 Pulse Ox 97 02/25/17 07:25 - Labs Result Diagrams: 02/26/17 08:20 02/23/17 04:42 Labs: Laboratory Results - last 24 hr 02/23/17 02/23/17 02/24/17 08:08 10:47 14:11 Fluid Source Pleural Fluid Appearance Cloudy Fluid WBC 1972.0 H Fluid RBC 346.0 H Fluid Tot Cell Count 100 H Fluid Neutrophils 1.0 H Fluid Lymphocytes 23.0 H Fld Monocyte/Macrophag 2 H Fluid Comment SS-A Antibody <1.0 SS-B Ab Interp Negative SS-B Antibody <1.0 [employer]TAINER INSPECTOR Antibody >8.0 H [employer] CONTAINER INSPECTOR Antibody Interp Positive H Double Strand DNA Ab 172 H - Imaging and Cardiology CT scan - chest Status: Report reviewed by me (SEE REPORT) Assessment & Plan (1) Pneumonia Status: Acute (2) Left sided chest pain Status: Acute (3) Pleural effusion Status: Acute (4) Systemic lupus Status: Acute (5) Anemia Status: Resolved (6) Weight loss, abnormal Status: Acute - Assessment and Plan (Free Text) Assessment: IMPRESSION; PNEUMONIA WITH LEFT PLEURAL EFFUSION. R/O ATYPICAL PNEUMONIA VS OCCULT TB VS VASCULITIS. SYSTEMIC LUPUS ERYTHEMATOSIS. ANEMIA. LEUKOPENIA WEIGHT LOSS PLAN. PANCULTURES ATYPICAL TITERS QUANTIferon GOLD TB TEST. CONTINUE iv CEFTRIAXONE 1 G ONCE A DAY DAILY.02/25/17 CONTINUE iv zITHROMAX 500 MG ONCE A DAY DAILY.02/22/17. HIV 1/2 ANTIBODY. LYMPHOCYTE SUBSET STUDIES. OPHTHALMOLOGICAL EVALUATION REQUESTED BY RHEUMATOLOGY DR APARICIO. PATIENT ON SOLU-mEDROL 40 MG EVERY 8 HOURLY PER PULMONARY. F/U PLEURAL FLUID CULTURES FOR MTB. RHEUMATOLOGY ON BOARD. WILL DISCUSS WITH YOU AND MAKE RECOMMENDATIONS NEEDED. THANK YOU
[2017-02-25] MEDS: Azithromycin 500 MG in Sodium Chloride 0.9% 250 ML IVPB SCH (14:49)
--- NOTE | 2017-02-25 18:35 | CP.PCM.PN ---
Subjective - Date & Time of Evaluation Date of Evaluation: 02/25/17 Time of Evaluation: 11:20 - Subjective Subjective: clinically same Objective - Vital Signs/Intake and Output Vital Signs (last 24 hours): Temp Pulse Resp BP Pulse Ox 98.3 F 86 18 103/67 99 02/25/17 17:34 02/25/17 17:34 02/25/17 17:34 02/25/17 17:34 02/25/17 17:34 Intake and Output: 02/25/17 02/25/17 06:59 18:59 Intake Total 600 700 Balance 600 700 - Medications Medications: Current Medications Aspirin (Aspirin) 325 mg PO DAILY [facility] Last Admin: 02/25/17 09:59 Dose: 325 mg Enoxaparin Sodium (Lovenox) 40 mg SC DAILY [facility] Last Admin: 02/25/17 10:01 Dose: 40 mg Ceftriaxone Sodium 1 gm/ (Sodium Chloride) 100 mls @ 100 mls/hr IVPB DAILY [facility] Last Admin: 02/25/17 13:57 Dose: 100 mls/hr Azithromycin 500 mg/ Sodium (Chloride) 250 mls @ 167 mls/hr IVPB Q24H [facility] Last Admin: 02/25/17 14:49 Dose: 167 mls/hr Meclizine HCl (Antivert) 25 mg PO TID [facility] Last Admin: 02/25/17 17:45 Dose: 25 mg Methylprednisolone (Solu-Medrol) 40 mg IV Q8 [facility] Last Admin: 02/25/17 13:00 Dose: 40 mg Pantoprazole Sodium (Protonix Ec Tab) 40 mg PO DAILY [facility] Last Admin: 02/25/17 10:00 Dose: 40 mg Tramadol HCl (Ultram) 50 mg PO Q6H PRN PRN Reason: Pain, severe (8-10) Last Admin: 02/23/17 02:00 Dose: 50 mg - Labs Labs: 02/23/17 04:42 02/23/17 04:42 PT 11.9 SECONDS (9.7-12.2) 02/22/17 17:02 INR 1.1 02/22/17 17:02 APTT 32 SECONDS (21-34) 02/22/17 17:02 - Constitutional Appears: Well - Head Exam Head Exam: ATRAUMATIC, NORMAL INSPECTION, NORMOCEPHALIC - Eye Exam Eye Exam: EOMI, Normal appearance, PERRL Pupil Exam: NORMAL ACCOMODATION, PERRL - ENT Exam ENT Exam: Mucous Membranes Moist, Normal Exam - Neck Exam Neck Exam: Full ROM, Normal Inspection. absent: Lymphadenopathy - Respiratory Exam Respiratory Exam: Clear to Ausculation Bilateral, NORMAL BREATHING PATTERN - Cardiovascular Exam Cardiovascular Exam: REGULAR RHYTHM, +S1, +S2. absent: Murmur - GI/Abdominal Exam GI & Abdominal Exam: Soft, Normal Bowel Sounds. absent: Tenderness - Rectal Exam Rectal Exam: Deferred - Extremities Exam Extremities Exam: Full ROM, Normal Capillary Refill, Normal Inspection. absent : Joint Swelling, Pedal Edema - Back Exam Back Exam: NORMAL INSPECTION Assessment and Plan (1) Left sided chest pain Status: Acute (2) Pleural effusion Status: Acute (3) Pneumonia Status: Acute (4) Systemic lupus Status: Acute (5) Weight loss, abnormal Status: Acute (6) Anemia Status: Resolved (7) Bacterial vaginosis Status: Acute - Assessment and Plan (Free Text) Plan: Patient examined. Patient better. No fever. Left Pleural fluid culture preliminary is negative. Gram stain negative. Continue ceftriaxone and azithromycin. Continue aspirin. Continue supportive care.
--- NOTE | 2017-02-25 19:54 | CP.PCM.PN ---
Subjective - Date & Time of Evaluation Date of Evaluation: 02/25/17 Time of Evaluation: 16:05 - Subjective Subjective: Patient is very fatigue. She had difficulty sleeping because of joint pain. I informed the patient that her lab studies were positive for Systemic Lupus. Dr Alvarado started the patient on IV solumedrol. Once she feels better, we can slowly gómez solumedrol and switch to prednisone. I also suggest we get a visual ryan exam, since she will also need plaquenil. Objective - Vital Signs/Intake and Output Vital Signs (last 24 hours): Temp Pulse Resp BP Pulse Ox 98.3 F 86 18 103/67 99 02/25/17 17:34 02/25/17 17:34 02/25/17 17:34 02/25/17 17:34 02/25/17 17:34 Intake and Output: 02/25/17 02/26/17 18:59 06:59 Intake Total 990 Balance 990 - Medications Medications: Current Medications Aspirin (Aspirin) 325 mg PO DAILY [facility] Last Admin: 02/25/17 09:59 Dose: 325 mg Enoxaparin Sodium (Lovenox) 40 mg SC DAILY [facility] Last Admin: 02/25/17 10:01 Dose: 40 mg Ceftriaxone Sodium 1 gm/ (Sodium Chloride) 100 mls @ 100 mls/hr IVPB DAILY [facility] Last Admin: 02/25/17 13:57 Dose: 100 mls/hr Azithromycin 500 mg/ Sodium (Chloride) 250 mls @ 167 mls/hr IVPB Q24H [facility] Last Admin: 02/25/17 14:49 Dose: 167 mls/hr Meclizine HCl (Antivert) 25 mg PO TID [facility] Last Admin: 02/25/17 17:45 Dose: 25 mg Methylprednisolone (Solu-Medrol) 40 mg IV Q8 [facility] Last Admin: 02/25/17 13:00 Dose: 40 mg Pantoprazole Sodium (Protonix Ec Tab) 40 mg PO DAILY [facility] Last Admin: 02/25/17 10:00 Dose: 40 mg Tramadol HCl (Ultram) 50 mg PO Q6H PRN PRN Reason: Pain, severe (8-10) Last Admin: 02/23/17 02:00 Dose: 50 mg - Labs Labs: 02/23/17 04:42 02/23/17 04:42 PT 11.9 SECONDS (9.7-12.2) 02/22/17 17:02 INR 1.1 02/22/17 17:02 APTT 32 SECONDS (21-34) 02/22/17 17:02 - Constitutional Appears: Chronically Ill - Head Exam Head Exam: NORMOCEPHALIC - Eye Exam Eye Exam: Normal appearance Pupil Exam: NORMAL ACCOMODATION - ENT Exam ENT Exam: Normal Exam - Neck Exam Neck Exam: Normal Inspection - Respiratory Exam Respiratory Exam: Clear to Ausculation Bilateral - Cardiovascular Exam Cardiovascular Exam: REGULAR RHYTHM - GI/Abdominal Exam GI & Abdominal Exam: Normal Bowel Sounds - Rectal Exam Rectal Exam: Deferred - Exam External exam: NORMAL EXTERNAL EXAM - Extremities Exam Extremities Exam: Tenderness - Back Exam Back Exam: NORMAL INSPECTION - Neurological Exam Neurological Exam: Oriented x3 - Psychiatric Exam Psychiatric exam: Depressed - Skin Skin Exam: Dry Assessment and Plan (1) Systemic lupus Status: Acute (2) Anemia Status: Resolved (3) Left sided chest pain Status: Acute (4) Pleural effusion Status: Acute
[2017-02-26] MEDS: MethylPREDNISolone 40 mg Vial IV SCH ×3 (06:35→21:19)
[2017-02-26 08:29] LABS: BASO % 0.1 % (0.0-2.0); HEMATOCRIT 33.4 % (34.0-47.0); LYMPH # 0.7 K/uL (1.0-4.3); MEAN CELL VOLUME 80.7 fL (81.0-99.0); MEAN CORPUSCULAR HEMOGLOBIN 26.8 pg (27.0-31.0); MEAN CORPUSCULAR HGB CONC 33.3 g/dL (33.0-37.0); MEAN PLATELET VOLUME 10.7 fL (7.2-11.7); MONO # 0.2 K/uL (0.0-0.8); MONO % 3.6 % (0.0-10.0); NRBC % 0.1 % (0.0-2.0); RED CELL DISTRIBUTION WIDTH 13.7 % (11.5-14.5); WHITE BLOOD COUNT 6.1 K/uL (4.8-10.8)
[2017-02-26 09:20] LABS: FREE T4 0.82 ng/dL (0.78-2.19)
[2017-02-26] MEDS: Pantoprazole 40 mg EC Tab PO SCH (09:33)
[2017-02-26] MEDS: Enoxaparin 40 mg Syringe SC SCH (09:33)
[2017-02-26 09:34] LABS: THYROID STIMULATING HORMONE 0.45 mIU/L (0.46-4.68)
[2017-02-26] MEDS: Azithromycin 500 MG in Sodium Chloride 0.9% 250 ML IVPB SCH (14:21)
--- NOTE | 2017-02-26 17:08 | CP.PCM.PN ---
Subjective - Date & Time of Evaluation Date of Evaluation: 02/26/17 Time of Evaluation: 11:20 - Subjective Subjective: clinically same Objective - Vital Signs/Intake and Output Vital Signs (last 24 hours): Temp Pulse Resp BP Pulse Ox 97.7 F 65 20 101/61 98 02/26/17 07:00 02/26/17 07:00 02/26/17 07:00 02/26/17 07:00 02/26/17 07:00 Intake and Output: 02/26/17 02/26/17 06:59 18:59 Intake Total 240 Balance 240 - Medications Medications: Current Medications Aspirin (Aspirin) 325 mg PO DAILY [facility] Last Admin: 02/26/17 09:33 Dose: 325 mg Enoxaparin Sodium (Lovenox) 40 mg SC DAILY [facility] Last Admin: 02/26/17 09:33 Dose: 40 mg Ceftriaxone Sodium 1 gm/ (Sodium Chloride) 100 mls @ 100 mls/hr IVPB DAILY [facility] Last Admin: 02/26/17 09:33 Dose: 100 mls/hr Azithromycin 500 mg/ Sodium (Chloride) 250 mls @ 167 mls/hr IVPB Q24H [facility] Last Admin: 02/26/17 14:21 Dose: 167 mls/hr Meclizine HCl (Antivert) 25 mg PO TID [facility] Last Admin: 02/26/17 14:21 Dose: 25 mg Methylprednisolone (Solu-Medrol) 40 mg IV Q8 [facility] Last Admin: 02/26/17 14:21 Dose: 40 mg Pantoprazole Sodium (Protonix Ec Tab) 40 mg PO DAILY [facility] Last Admin: 02/26/17 09:33 Dose: 40 mg Tramadol HCl (Ultram) 50 mg PO Q6H PRN PRN Reason: Pain, severe (8-10) Last Admin: 02/23/17 02:00 Dose: 50 mg - Labs Labs: 02/26/17 08:20 02/23/17 04:42 PT 11.9 SECONDS (9.7-12.2) 02/22/17 17:02 INR 1.1 02/22/17 17:02 APTT 32 SECONDS (21-34) 02/22/17 17:02 - Constitutional Appears: Well - Head Exam Head Exam: ATRAUMATIC, NORMAL INSPECTION, NORMOCEPHALIC - Eye Exam Eye Exam: EOMI, Normal appearance, PERRL Pupil Exam: NORMAL ACCOMODATION, PERRL - ENT Exam ENT Exam: Mucous Membranes Moist, Normal Exam - Neck Exam Neck Exam: Full ROM, Normal Inspection. absent: Lymphadenopathy - Respiratory Exam Respiratory Exam: Clear to Ausculation Bilateral, NORMAL BREATHING PATTERN - Cardiovascular Exam Cardiovascular Exam: REGULAR RHYTHM, +S1, +S2. absent: Murmur - GI/Abdominal Exam GI & Abdominal Exam: Soft, Normal Bowel Sounds. absent: Tenderness - Rectal Exam Rectal Exam: Deferred - Extremities Exam Extremities Exam: Full ROM, Normal Capillary Refill, Normal Inspection. absent : Joint Swelling, Pedal Edema - Back Exam Back Exam: NORMAL INSPECTION Assessment and Plan (1) Left sided chest pain Status: Acute (2) Pleural effusion Status: Acute (3) Pneumonia Status: Acute (4) Systemic lupus Status: Acute (5) Weight loss, abnormal Status: Acute (6) Anemia Status: Resolved (7) Bacterial vaginosis Status: Acute - Assessment and Plan (Free Text) Plan: Patient examined. Pleural fluid protein micro shows around 2000 total count. IVIS is positive. [employer]ER OPERATOR antibodies positive. Continue aspirin, ceftriaxone and azithromycin. Continue supportive care.
--- NOTE | 2017-02-26 19:39 | CP.PCM.PN ---
Subjective - Date & Time of Evaluation Date of Evaluation: 02/26/17 Time of Evaluation: 17:15 - Subjective Subjective: Patient feels better. She was able to sleep and has less joint pain. Would suggest starting the patient on prednisone 40mg OD and begin tappering IV solumedrol. We also need a visual ryan exam before starting plaquenil 200mg twice a day. Objective - Vital Signs/Intake and Output Vital Signs (last 24 hours): Temp Pulse Resp BP Pulse Ox 98.3 F 62 20 108/63 98 02/26/17 15:32 02/26/17 15:32 02/26/17 15:32 02/26/17 15:32 02/26/17 15:32 - Medications Medications: Current Medications Aspirin (Aspirin) 325 mg PO DAILY [facility] Last Admin: 02/26/17 09:33 Dose: 325 mg Enoxaparin Sodium (Lovenox) 40 mg SC DAILY [facility] Last Admin: 02/26/17 09:33 Dose: 40 mg Ceftriaxone Sodium 1 gm/ (Sodium Chloride) 100 mls @ 100 mls/hr IVPB DAILY [facility] Last Admin: 02/26/17 09:33 Dose: 100 mls/hr Azithromycin 500 mg/ Sodium (Chloride) 250 mls @ 167 mls/hr IVPB Q24H [facility] Last Admin: 02/26/17 14:21 Dose: 167 mls/hr Meclizine HCl (Antivert) 25 mg PO TID [facility] Last Admin: 02/26/17 18:39 Dose: 25 mg Methylprednisolone (Solu-Medrol) 40 mg IV Q8 [facility] Last Admin: 02/26/17 14:21 Dose: 40 mg Pantoprazole Sodium (Protonix Ec Tab) 40 mg PO DAILY [facility] Last Admin: 02/26/17 09:33 Dose: 40 mg Tramadol HCl (Ultram) 50 mg PO Q6H PRN PRN Reason: Pain, severe (8-10) Last Admin: 02/23/17 02:00 Dose: 50 mg - Labs Labs: 02/26/17 08:20 02/23/17 04:42 PT 11.9 SECONDS (9.7-12.2) 02/22/17 17:02 INR 1.1 02/22/17 17:02 APTT 32 SECONDS (21-34) 02/22/17 17:02 - Constitutional Appears: No Acute Distress - Head Exam Head Exam: NORMOCEPHALIC - Eye Exam Eye Exam: Normal appearance Pupil Exam: NORMAL ACCOMODATION - ENT Exam ENT Exam: Normal Exam - Neck Exam Neck Exam: Normal Inspection - Respiratory Exam Respiratory Exam: NORMAL BREATHING PATTERN - Cardiovascular Exam Cardiovascular Exam: REGULAR RHYTHM - GI/Abdominal Exam GI & Abdominal Exam: Normal Bowel Sounds - Rectal Exam Rectal Exam: Deferred - Exam External exam: NORMAL EXTERNAL EXAM - Extremities Exam Extremities Exam: Normal Inspection - Back Exam Back Exam: NORMAL INSPECTION - Neurological Exam Neurological Exam: Oriented x3 - Psychiatric Exam Psychiatric exam: Normal Affect - Skin Skin Exam: Dry Assessment and Plan (1) Systemic lupus Status: Acute (2) Anemia Status: Resolved (3) Left sided chest pain Status: Acute (4) Pleural effusion Status: Acute
[2017-02-27] MEDS: MethylPREDNISolone 40 mg Vial IV SCH ×3 (05:15→21:27)
[2017-02-27] MEDS: Enoxaparin 40 mg Syringe SC SCH (09:23)
[2017-02-27] MEDS: Pantoprazole 40 mg EC Tab PO SCH (09:23)
--- NOTE | 2017-02-27 11:07 | US ---
PROCEDURE: Date of procedure: 02/24/2017 Procedure: 1. Ultrasound-guided left thoracentesis, CPT 48305 Medications: 6cc 1% Lidocaine HISTORY: Left pleural effusion, shortness of breath TECHNIQUE: Following informed consent ,the Patients' left chest was marked. Procedure time-out was called, and the patient was placed in the sitting position and limited ultrasound showed a large left effusion. The patient's left back was prepped and draped in the usual sterile fashion. After the skin was anesthetized with lidocaine, a drainage catheter was advanced under ultrasound guidance into the pleural space. Ultrasound-guided thoracentesis was performed. A total of 500 cubic centimeters of straw-colored fluid removed without complication. A Xeroform dressing was applied. IMPRESSION: Ultrasound guided left thoracentesis. There were no immediate complications.
[2017-02-27] MEDS: Azithromycin 500 MG in Sodium Chloride 0.9% 250 ML IVPB SCH (13:55)
[2017-02-27 14:03] LABS: BASO % 0.4 % (0.0-2.0); HEMATOCRIT 34.5 % (34.0-47.0); LYMPH % 8.4 % (20.0-40.0); MEAN CELL VOLUME 81.3 fL (81.0-99.0); MEAN CORPUSCULAR HEMOGLOBIN 26.1 pg (27.0-31.0); MEAN CORPUSCULAR HGB CONC 32.1 g/dL (33.0-37.0); MEAN PLATELET VOLUME 10.8 fL (7.2-11.7); MONO # 0.6 K/uL (0.0-0.8); MONO % 5.3 % (0.0-10.0); NRBC % 0.1 % (0.0-2.0); PLATELET COUNT 218 K/uL (130-400); RED CELL DISTRIBUTION WIDTH 13.8 % (11.5-14.5); WHITE BLOOD COUNT 11.9 K/uL (4.8-10.8)
[2017-02-27 14:07] LABS: POTASSIUM 3.7 mmol/L (3.6-5.2)
[2017-02-27 14:32] LABS: NEUTROPHIL 93 % (50-75); TOTAL CELLS COUNTED 100
[2017-02-27 15:09] LABS: ERYTHROCYTE SEDIMENTATION RATE 55 mm/hr (0-20)
--- NOTE | 2017-02-27 19:19 | CP.PCM.PN ---
Subjective - Date & Time of Evaluation Date of Evaluation: 02/27/17 Time of Evaluation: 19:19 - Subjective Subjective: temperature 99.0 vs BP 110/75 FEELING BETTER. DENIES SOB OR CHEST PAIN. LESS ARTHRALGIAS AND JOINT PAINS. LABS; REVIEWED wbc 11.9 ? STEROIDS. HIV 1/2 ANTIBODY NEGATIVE ESR IMPROVING 55 Objective - Vital Signs/Intake and Output Vital Signs (last 24 hours): Temp Pulse Resp BP Pulse Ox 97.9 F 61 20 110/71 98 02/27/17 15:45 02/27/17 15:45 02/27/17 15:45 02/27/17 15:45 02/27/17 15:45 Intake and Output: 02/27/17 02/28/17 18:59 06:59 Intake Total 600 Balance 600 - Medications Medications: Current Medications Aspirin (Aspirin) 325 mg PO DAILY [facility] Last Admin: 02/27/17 09:23 Dose: 325 mg Enoxaparin Sodium (Lovenox) 40 mg SC DAILY [facility] Last Admin: 02/27/17 09:23 Dose: 40 mg Ceftriaxone Sodium 1 gm/ (Sodium Chloride) 100 mls @ 100 mls/hr IVPB DAILY [facility] Last Admin: 02/27/17 09:23 Dose: 100 mls/hr Azithromycin 500 mg/ Sodium (Chloride) 250 mls @ 167 mls/hr IVPB Q24H [facility] Last Admin: 02/27/17 13:55 Dose: 167 mls/hr Meclizine HCl (Antivert) 25 mg PO TID [facility] Last Admin: 02/27/17 17:15 Dose: 25 mg Methylprednisolone (Solu-Medrol) 40 mg IV Q8 [facility] Last Admin: 02/27/17 13:56 Dose: 40 mg Pantoprazole Sodium (Protonix Ec Tab) 40 mg PO DAILY [facility] Last Admin: 02/27/17 09:23 Dose: 40 mg Tramadol HCl (Ultram) 50 mg PO Q6H PRN PRN Reason: Pain, severe (8-10) Last Admin: 02/23/17 02:00 Dose: 50 mg - Labs Labs: 02/27/17 13:48 02/27/17 13:48 PT 11.9 SECONDS (9.7-12.2) 02/22/17 17:02 INR 1.1 02/22/17 17:02 APTT 32 SECONDS (21-34) 02/22/17 17:02 - Constitutional Appears: No Acute Distress - Head Exam Head Exam: NORMAL INSPECTION - Eye Exam Eye Exam: EOMI, PERRL. absent: Nystagmus - ENT Exam ENT Exam: Normal Oropharynx (no thrush.) - Neck Exam Neck Exam: Normal Inspection - Respiratory Exam Respiratory Exam: Rhonchi ( rhonchi left-sided). absent: Wheezes - Cardiovascular Exam Cardiovascular Exam: REGULAR RHYTHM, +S1, +S2 - GI/Abdominal Exam GI & Abdominal Exam: Soft, Normal Bowel Sounds. absent: Organomegaly - Extremities Exam Extremities Exam: absent: Calf Tenderness, Joint Swelling, Pedal Edema - Neurological Exam Neurological Exam: Alert, Awake, CN II-XII Intact, Oriented x3, Reflexes Normal - Psychiatric Exam Psychiatric exam: Normal Mood - Skin Skin Exam: Normal Color, Warm Assessment and Plan (1) Pneumonia Status: Acute (2) Left sided chest pain Status: Acute (3) Pleural effusion Status: Acute (4) Systemic lupus Status: Acute (5) Anemia Status: Resolved (6) Weight loss, abnormal Status: Acute - Assessment and Plan (Free Text) Assessment: IMPRESSION; PNEUMONIA WITH LEFT PLEURAL EFFUSION. R/O ATYPICAL PNEUMONIA VS OCCULT TB VS VASCULITIS. SYSTEMIC LUPUS ERYTHEMATOSIS. ANEMIA. LEUKOPENIA-improving WEIGHT LOSS PLAN. QUANTIferon GOLD TB TEST.-p CONTINUE iv CEFTRIAXONE 1 G ONCE A DAY DAILY.02/25/17 CONTINUE iv zITHROMAX 500 MG ONCE A DAY DAILY.02/22/17. . OPHTHALMOLOGICAL EVALUATION REQUESTED BY RHEUMATOLOGY DR APARICIO. PATIENT ON SOLU-mEDROL 40 MG EVERY 8 HOURLY PER PULMONARY. F/U PLEURAL FLUID CULTURES FOR MTB. As per rheumatology
--- NOTE | 2017-02-27 19:43 | CP.PCM.PN ---
Subjective - Date & Time of Evaluation Date of Evaluation: 02/27/17 Time of Evaluation: 12:40 - Subjective Subjective: clinically same Objective - Vital Signs/Intake and Output Vital Signs (last 24 hours): Temp Pulse Resp BP Pulse Ox 97.9 F 61 20 110/71 98 02/27/17 15:45 02/27/17 15:45 02/27/17 15:45 02/27/17 15:45 02/27/17 15:45 Intake and Output: 02/27/17 02/28/17 18:59 06:59 Intake Total 600 Balance 600 - Medications Medications: Current Medications Aspirin (Aspirin) 325 mg PO DAILY [facility] Last Admin: 02/27/17 09:23 Dose: 325 mg Enoxaparin Sodium (Lovenox) 40 mg SC DAILY [facility] Last Admin: 02/27/17 09:23 Dose: 40 mg Ceftriaxone Sodium 1 gm/ (Sodium Chloride) 100 mls @ 100 mls/hr IVPB DAILY [facility] Last Admin: 02/27/17 09:23 Dose: 100 mls/hr Azithromycin 500 mg/ Sodium (Chloride) 250 mls @ 167 mls/hr IVPB Q24H [facility] Last Admin: 02/27/17 13:55 Dose: 167 mls/hr Meclizine HCl (Antivert) 25 mg PO TID [facility] Last Admin: 02/27/17 17:15 Dose: 25 mg Methylprednisolone (Solu-Medrol) 40 mg IV Q8 [facility] Last Admin: 02/27/17 13:56 Dose: 40 mg Pantoprazole Sodium (Protonix Ec Tab) 40 mg PO DAILY [facility] Last Admin: 02/27/17 09:23 Dose: 40 mg Tramadol HCl (Ultram) 50 mg PO Q6H PRN PRN Reason: Pain, severe (8-10) Last Admin: 02/23/17 02:00 Dose: 50 mg - Labs Labs: 02/27/17 13:48 02/27/17 13:48 PT 11.9 SECONDS (9.7-12.2) 02/22/17 17:02 INR 1.1 02/22/17 17:02 APTT 32 SECONDS (21-34) 02/22/17 17:02 Assessment and Plan (1) Left sided chest pain Status: Acute (2) Pleural effusion Status: Acute (3) Pneumonia Status: Acute (4) Systemic lupus Status: Acute (5) Weight loss, abnormal Status: Acute (6) Anemia Status: Resolved (7) Bacterial vaginosis Status: Acute
[2017-02-28] MEDS: MethylPREDNISolone 40 mg Vial IV SCH ×2 (06:11→13:05)
[2017-02-28] MEDS: Pantoprazole 40 mg EC Tab PO SCH (11:13)
[2017-02-28] MEDS: Enoxaparin 40 mg Syringe SC SCH (11:13)
--- NOTE | 2017-02-28 11:56 | CP.PCM.PN ---
Subjective - Date & Time of Evaluation Date of Evaluation: 02/28/17 Time of Evaluation: 11:56 - Subjective Subjective: AFEBRILE, FEELING MUCH BETTER DENIES SHORTNESS OF BREATH, OR PLEURITIC CHEST PAIN. PATIENT BEING ADJUSTED ON STEROIDS PER RHEUMATOLOGY. LABS ; REVIEWED pleural fluid cloudy pleural fluid WBC 1972, RBCs 346, 23% lymphs, 1% neutrophils pleural fluid total protein is 5.8. LDH 268, pleural glucose 97. PT HAS AN EXUDATIVE EFFUSION. pleural fluid cultures negative growth to date. Pleural fluid mycobacterial culture pending. Objective - Vital Signs/Intake and Output Vital Signs (last 24 hours): Temp Pulse Resp BP Pulse Ox 97.6 F 57 L 20 116/67 100 02/28/17 08:45 02/28/17 08:45 02/28/17 08:45 02/28/17 08:45 02/28/17 08:45 Intake and Output: 02/28/17 02/28/17 06:59 18:59 Intake Total 670 Balance 670 - Medications Medications: Current Medications Aspirin (Aspirin) 325 mg PO DAILY [facility] Last Admin: 02/28/17 11:13 Dose: 325 mg Enoxaparin Sodium (Lovenox) 40 mg SC DAILY [facility] Last Admin: 02/28/17 11:13 Dose: 40 mg Ceftriaxone Sodium 1 gm/ (Sodium Chloride) 100 mls @ 100 mls/hr IVPB DAILY [facility] Last Admin: 02/28/17 11:13 Dose: 100 mls/hr Azithromycin 500 mg/ Sodium (Chloride) 250 mls @ 167 mls/hr IVPB Q24H [facility] Last Admin: 02/27/17 13:55 Dose: 167 mls/hr Meclizine HCl (Antivert) 25 mg PO TID [facility] Last Admin: 02/28/17 11:13 Dose: 25 mg Methylprednisolone (Solu-Medrol) 40 mg IV Q8 [facility] Last Admin: 02/28/17 06:11 Dose: 40 mg Pantoprazole Sodium (Protonix Ec Tab) 40 mg PO DAILY [facility] Last Admin: 02/28/17 11:13 Dose: 40 mg Tramadol HCl (Ultram) 50 mg PO Q6H PRN PRN Reason: Pain, severe (8-10) Last Admin: 02/23/17 02:00 Dose: 50 mg - Labs Labs: 02/27/17 13:48 02/27/17 13:48 PT 11.9 SECONDS (9.7-12.2) 02/22/17 17:02 INR 1.1 02/22/17 17:02 APTT 32 SECONDS (21-34) 02/22/17 17:02 - Constitutional Appears: No Acute Distress - Head Exam Head Exam: NORMAL INSPECTION - Eye Exam Eye Exam: EOMI, PERRL - ENT Exam ENT Exam: Normal Oropharynx - Neck Exam Neck Exam: Normal Inspection - Respiratory Exam Respiratory Exam: Rhonchi (few rhonchi left base). absent: Chest Wall Tenderness - Cardiovascular Exam Cardiovascular Exam: REGULAR RHYTHM, +S1, +S2 - GI/Abdominal Exam GI & Abdominal Exam: Soft, Normal Bowel Sounds. absent: Organomegaly - Extremities Exam Extremities Exam: Normal Capillary Refill. absent: Calf Tenderness, Pedal Edema - Neurological Exam Neurological Exam: Awake, CN II-XII Intact, Oriented x3, Reflexes Normal - Psychiatric Exam Psychiatric exam: Normal Affect, Normal Mood - Skin Skin Exam: Normal Color, Warm Assessment and Plan (1) Pneumonia Status: Acute (2) Left sided chest pain Status: Acute (3) Pleural effusion Assessment & Plan: PT HAS AN EXUDATIVE EFFUSION ? TRAUMATIC. ? CHEST TUBE. WILL DISCUSS WITH PULMONARY Status: Acute (4) Systemic lupus Assessment & Plan: patient on IV steroids as per pulmonary. Needs ophthalmology evaluation as per rheumatology to start Plaquenil. Status: Acute (5) Anemia Status: Resolved (6) Weight loss, abnormal Status: Acute - Assessment and Plan (Free Text) Assessment: IMPRESSION; PNEUMONIA WITH LEFT PLEURAL EFFUSION. R/O ATYPICAL PNEUMONIA VS OCCULT TB VS VASCULITIS. SYSTEMIC LUPUS ERYTHEMATOSIS. ANEMIA. LEUKOPENIA-improving WEIGHT LOSS PLAN. QUANTIferon GOLD TB TEST.-p CONTINUE iv CEFTRIAXONE 1 G ONCE A DAY DAILY.02/25/17 CONTINUE iv ZITHROMAX 500 MG ONCE A DAY DAILY.02/22/17. . OPHTHALMOLOGICAL EVALUATION REQUESTED BY RHEUMATOLOGY DR APARICIO. PATIENT ON SOLU-mEDROL 40 MG EVERY 8 HOURLY HE TAPERED TO BY MOUTH PREDNISONE 40 MG ONCE A DAY F/U PLEURAL FLUID CULTURES FOR MTB P. CASE DISCUSSED WITH N.PRACTITIONER- MR MARCH. PATIENT CAN BE SWITCHED TO BY MOUTH ZITHROMAX ( Z.PACK ) FOR 5DAYS ON DISCHARGE PER RHEUMATOLOGY, AND PULMONARY CLEARANCE .
[2017-02-28] MEDS: Azithromycin 500 MG in Sodium Chloride 0.9% 250 ML IVPB SCH (13:40)
--- NOTE | 2017-02-28 17:46 | CP.PCM.PN ---
Subjective - Date & Time of Evaluation Date of Evaluation: 02/28/17 Time of Evaluation: 12:00 - Subjective Subjective: clinically same Objective - Vital Signs/Intake and Output Vital Signs (last 24 hours): Temp Pulse Resp BP Pulse Ox 98.0 F 56 L 18 98/59 L 100 02/28/17 15:14 02/28/17 15:14 02/28/17 15:14 02/28/17 15:14 02/28/17 15:14 Intake and Output: 02/28/17 02/28/17 06:59 18:59 Intake Total 670 600 Balance 670 600 - Medications Medications: Current Medications Aspirin (Aspirin) 325 mg PO DAILY [facility] Last Admin: 02/28/17 11:13 Dose: 325 mg Enoxaparin Sodium (Lovenox) 40 mg SC DAILY [facility] Last Admin: 02/28/17 11:13 Dose: 40 mg Ceftriaxone Sodium 1 gm/ (Sodium Chloride) 100 mls @ 100 mls/hr IVPB DAILY [facility] Last Admin: 02/28/17 11:13 Dose: 100 mls/hr Azithromycin 500 mg/ Sodium (Chloride) 250 mls @ 167 mls/hr IVPB Q24H [facility] Last Admin: 02/28/17 13:40 Dose: 167 mls/hr Meclizine HCl (Antivert) 25 mg PO TID [facility] Last Admin: 02/28/17 17:43 Dose: 25 mg Methylprednisolone (Solu-Medrol) 40 mg IV Q24H [facility] Pantoprazole Sodium (Protonix Ec Tab) 40 mg PO DAILY [facility] Last Admin: 02/28/17 11:13 Dose: 40 mg Prednisone (Prednisone Tab) 40 mg PO Q24H [facility] Prednisone (Prednisone Tab) 40 mg PO ONCE ONE Stop: 02/28/17 20:01 Tramadol HCl (Ultram) 50 mg PO Q6H PRN PRN Reason: Pain, severe (8-10) Last Admin: 02/23/17 02:00 Dose: 50 mg - Labs Labs: 02/27/17 13:48 02/27/17 13:48 PT 11.9 SECONDS (9.7-12.2) 02/22/17 17:02 INR 1.1 02/22/17 17:02 APTT 32 SECONDS (21-34) 02/22/17 17:02 - Constitutional Appears: Well - Head Exam Head Exam: ATRAUMATIC, NORMAL INSPECTION, NORMOCEPHALIC - Eye Exam Eye Exam: EOMI, Normal appearance, PERRL Pupil Exam: NORMAL ACCOMODATION, PERRL - ENT Exam ENT Exam: Mucous Membranes Moist, Normal Exam - Neck Exam Neck Exam: Full ROM, Normal Inspection. absent: Lymphadenopathy - Respiratory Exam Respiratory Exam: Decreased Breath Sounds - Cardiovascular Exam Cardiovascular Exam: REGULAR RHYTHM, +S1, +S2 - GI/Abdominal Exam GI & Abdominal Exam: Soft, Diminished Bowel Sounds - Rectal Exam Rectal Exam: Deferred Assessment and Plan (1) Left sided chest pain Status: Acute (2) Pleural effusion Status: Acute (3) Pneumonia Status: Acute (4) Systemic lupus Status: Acute (5) Weight loss, abnormal Status: Acute (6) Anemia Status: Resolved (7) Bacterial vaginosis Status: Acute
--- NOTE | 2017-02-28 23:03 | CP.PCM.PN ---
Subjective - Date & Time of Evaluation Date of Evaluation: 02/28/17 Time of Evaluation: 13:20 - Subjective Subjective: Patient feels better. She has much less joint pain. Suggest patient be placed on prednisone 40mg PO daily. Get visual ryan examination and start plaquenil 200mg twice a day. Objective - Vital Signs/Intake and Output Vital Signs (last 24 hours): Temp Pulse Resp BP Pulse Ox 98.0 F 56 L 18 98/59 L 100 02/28/17 15:14 02/28/17 15:14 02/28/17 15:14 02/28/17 15:14 02/28/17 15:14 Intake and Output: 02/28/17 03/01/17 18:59 06:59 Intake Total 600 400 Balance 600 400 - Medications Medications: Current Medications Aspirin (Aspirin) 325 mg PO DAILY [facility] Last Admin: 02/28/17 11:13 Dose: 325 mg Enoxaparin Sodium (Lovenox) 40 mg SC DAILY [facility] Last Admin: 02/28/17 11:13 Dose: 40 mg Ceftriaxone Sodium 1 gm/ (Sodium Chloride) 100 mls @ 100 mls/hr IVPB DAILY [facility] Last Admin: 02/28/17 11:13 Dose: 100 mls/hr Azithromycin 500 mg/ Sodium (Chloride) 250 mls @ 167 mls/hr IVPB Q24H [facility] Last Admin: 02/28/17 13:40 Dose: 167 mls/hr Meclizine HCl (Antivert) 25 mg PO TID [facility] Last Admin: 02/28/17 17:43 Dose: 25 mg Methylprednisolone (Solu-Medrol) 40 mg IV Q24H [facility] Pantoprazole Sodium (Protonix Ec Tab) 40 mg PO DAILY [facility] Last Admin: 02/28/17 11:13 Dose: 40 mg Prednisone (Prednisone Tab) 40 mg PO Q24H [facility] Tramadol HCl (Ultram) 50 mg PO Q6H PRN PRN Reason: Pain, severe (8-10) Last Admin: 02/23/17 02:00 Dose: 50 mg - Labs Labs: 02/27/17 13:48 02/27/17 13:48 PT 11.9 SECONDS (9.7-12.2) 02/22/17 17:02 INR 1.1 02/22/17 17:02 APTT 32 SECONDS (21-34) 02/22/17 17:02 - Constitutional Appears: In Acute Distress - Head Exam Head Exam: NORMOCEPHALIC - Eye Exam Eye Exam: Normal appearance Pupil Exam: NORMAL ACCOMODATION - ENT Exam ENT Exam: Normal Exam - Neck Exam Neck Exam: Normal Inspection - Respiratory Exam Respiratory Exam: NORMAL BREATHING PATTERN - Cardiovascular Exam Cardiovascular Exam: REGULAR RHYTHM - GI/Abdominal Exam GI & Abdominal Exam: Normal Bowel Sounds - Rectal Exam Rectal Exam: Deferred - Exam External exam: NORMAL EXTERNAL EXAM - Extremities Exam Extremities Exam: Normal Inspection - Back Exam Back Exam: NORMAL INSPECTION - Neurological Exam Neurological Exam: Oriented x3 - Psychiatric Exam Psychiatric exam: Depressed - Skin Skin Exam: Dry Assessment and Plan (1) Systemic lupus Status: Acute (2) Anemia Status: Resolved (3) Left sided chest pain Status: Acute (4) Pleural effusion Status: Acute
[2017-03-01 07:59] VITALS: O2SAT 99
[2017-03-01 08:10] LABS: BASO % 0.2 % (0.0-2.0); HEMATOCRIT 35.9 % (34.0-47.0); LYMPH # 1.2 K/uL (1.0-4.3); LYMPH % 13.7 % (20.0-40.0); MEAN CORPUSCULAR HEMOGLOBIN 26.7 pg (27.0-31.0); MONO # 0.6 K/uL (0.0-0.8); MONO % 7.3 % (0.0-10.0); NRBC % 0.1 % (0.0-2.0); WHITE BLOOD COUNT 8.8 K/uL (4.8-10.8)
[2017-03-01] MEDS: Pantoprazole 40 mg EC Tab PO SCH (09:07)
[2017-03-01] MEDS: Enoxaparin 40 mg Syringe SC SCH (09:07)
[2017-03-01] MEDS ORDERED: MethylPREDNISolone 40 mg Vial IV SCH (10:00)
[2017-03-01] MEDS: Azithromycin 500 MG in Sodium Chloride 0.9% 250 ML IVPB SCH (14:23)
--- NOTE | 2017-03-01 16:14 | CP.PCM.PN ---
Subjective - Date & Time of Evaluation Date of Evaluation: 03/01/17 Time of Evaluation: 16:14 - Subjective Subjective: AFEBRILE, FEELING MUCH BETTER STATES READY TO BE DISCHARGED DENIES SHORTNESS OF BREATH, OR PLEURITIC CHEST PAIN. Objective - Vital Signs/Intake and Output Vital Signs (last 24 hours): Temp Pulse Resp BP Pulse Ox 97.6 F 49 L 20 105/60 99 03/01/17 07:00 03/01/17 07:00 03/01/17 07:00 03/01/17 07:00 03/01/17 07:00 Intake and Output: 03/01/17 03/01/17 06:59 18:59 Intake Total 400 104 Balance 400 104 - Medications Medications: Current Medications Aspirin (Aspirin) 325 mg PO DAILY [facility] Last Admin: 03/01/17 09:07 Dose: 325 mg Enoxaparin Sodium (Lovenox) 40 mg SC DAILY [facility] Last Admin: 03/01/17 09:07 Dose: 40 mg Ceftriaxone Sodium 1 gm/ (Sodium Chloride) 100 mls @ 100 mls/hr IVPB DAILY [facility] Last Admin: 03/01/17 09:07 Dose: 100 mls/hr Azithromycin 500 mg/ Sodium (Chloride) 250 mls @ 167 mls/hr IVPB Q24H [facility] Last Admin: 03/01/17 14:23 Dose: 167 mls/hr Meclizine HCl (Antivert) 25 mg PO TID [facility] Last Admin: 03/01/17 13:15 Dose: 25 mg Pantoprazole Sodium (Protonix Ec Tab) 40 mg PO DAILY [facility] Last Admin: 03/01/17 09:07 Dose: 40 mg Prednisone (Prednisone Tab) 40 mg PO Q24H [facility] Last Admin: 03/01/17 14:22 Dose: 40 mg Tramadol HCl (Ultram) 50 mg PO Q6H PRN PRN Reason: Pain, severe (8-10) Last Admin: 02/23/17 02:00 Dose: 50 mg - Labs Labs: 03/01/17 07:55 03/01/17 07:55 PT 11.9 SECONDS (9.7-12.2) 02/22/17 17:02 INR 1.1 02/22/17 17:02 APTT 32 SECONDS (21-34) 02/22/17 17:02 - Constitutional Appears: No Acute Distress - Head Exam Head Exam: NORMAL INSPECTION - Eye Exam Eye Exam: EOMI, PERRL - ENT Exam ENT Exam: Normal Oropharynx - Respiratory Exam Respiratory Exam: Clear to Ausculation Bilateral - GI/Abdominal Exam GI & Abdominal Exam: Soft, Normal Bowel Sounds - Extremities Exam Extremities Exam: absent: Calf Tenderness, Pedal Edema - Neurological Exam Neurological Exam: Awake, CN II-XII Intact, Normal Gait, Oriented x3, Reflexes Normal - Psychiatric Exam Psychiatric exam: Normal Mood - Skin Skin Exam: Normal Color, Warm Assessment and Plan (1) Pneumonia Status: Acute (2) Left sided chest pain Status: Acute (3) Pleural effusion Status: Acute (4) Systemic lupus Status: Acute (5) Anemia Status: Resolved (6) Weight loss, abnormal Status: Acute - Assessment and Plan (Free Text) Assessment: IMPRESSION; PNEUMONIA WITH LEFT PLEURAL EFFUSION. R/O ATYPICAL PNEUMONIA VS OCCULT TB VS VASCULITIS. SYSTEMIC LUPUS ERYTHEMATOSIS. ANEMIA. LEUKOPENIA-improving WEIGHT LOSS PLAN. QUANTIferon GOLD TB TEST.-p CONTINUE iv CEFTRIAXONE 1 G ONCE A DAY DAILY.02/25/17 CONTINUE iv ZITHROMAX 500 MG ONCE A DAY DAILY.02/22/17. DC IV ABX . PO ZITHROMAX 500MG OD X 5DAYS. PO STEROIDS PER . F/U QFT-TB TESTAND PL [place] AFB CULTURES. F/U CXR IN 2WKSTO SEE FOR RECURRENT EFFUSION. PT TOLD TO F/U OPD
[2017-03-01 16:19] VITALS: BP 95/63; PULSE 60; RESP 18; TEMP 98.2
--- NOTE | 2017-03-01 23:19 | CP.PCM.PN ---
Subjective - Date & Time of Evaluation Date of Evaluation: 03/01/17 Time of Evaluation: 13:15 - Subjective Subjective: Patient anxious to leave hospital. DSDNA 172. Patient will be discharged on oral steroids. Follow up in one week. Needs to repeat quanteferon. Needs visual ryan exam in order to start Plaquenil. Objective - Vital Signs/Intake and Output Vital Signs (last 24 hours): Temp Pulse Resp BP Pulse Ox 98.2 F 60 18 95/63 L 99 03/01/17 15:17 03/01/17 15:17 03/01/17 15:17 03/01/17 15:17 03/01/17 15:17 Intake and Output: 03/01/17 03/02/17 18:59 06:59 Intake Total 504 Balance 504 - Labs Labs: 03/01/17 07:55 03/01/17 07:55 PT 11.9 SECONDS (9.7-12.2) 02/22/17 17:02 INR 1.1 02/22/17 17:02 APTT 32 SECONDS (21-34) 02/22/17 17:02 - Constitutional Appears: No Acute Distress - Head Exam Head Exam: NORMOCEPHALIC - Eye Exam Eye Exam: Normal appearance Pupil Exam: NORMAL ACCOMODATION - ENT Exam ENT Exam: Normal Exam - Neck Exam Neck Exam: Normal Inspection - Respiratory Exam Respiratory Exam: NORMAL BREATHING PATTERN - Cardiovascular Exam Cardiovascular Exam: REGULAR RHYTHM - GI/Abdominal Exam GI & Abdominal Exam: Normal Bowel Sounds - Rectal Exam Rectal Exam: Deferred - Exam External exam: NORMAL EXTERNAL EXAM - Back Exam Back Exam: NORMAL INSPECTION - Neurological Exam Neurological Exam: Oriented x3 Assessment and Plan (1) Systemic lupus Status: Acute (2) Left sided chest pain Status: Acute (3) Pleural effusion Status: Acute
== END 2017-03-01 18:06 | disposition home or self-care (01) | DRG 194 ==
LOC: C.ER 13:51 → C.9E 23:03 → C.6T 02-23 14:50
PROVIDERS: ADMIT Internal Medicine Nephrology; ATTEND Internal Medicine Nephrology
PROC: 0W9B3ZZ Drainage of Left Pleural Cavity, Percutaneous Approach (ICD-10-PCS; principal; 2017-02-24)
DX: J18.1 Lobar pneumonia, unspecified organism (principal); J91.8 Pleural effusion in other conditions classified elsewhere; M32.9 Systemic lupus erythematosus, unspecified; D72.819 Decreased white blood cell count, unspecified; N76.0 Acute vaginitis; D64.9 Anemia, unspecified

== ENCOUNTER 2017-07-04 08:33 | Observation (INO) | payer BC ==
[2017-07-04 08:39] VITALS: BMI 21.6
--- NOTE | 2017-07-04 10:00 | C.PDOC ---
History Of Present Illness 27yo female, with past medical history of lupus and rheumatoid arthritis, presents to ED with complaints of chest pain, throat pain and shortness of breath for the past 2 days. She also states she has headaches and "joint pains" as well. Patient reports when she was last admitted to the hospital due to fluid in her lungs; patient states it was determined the fluid was present due to her lupus. She had a CXR done 1 month ago and states "it was normal." She denies any fever, chills, nausea, vomiting, abdominal pain. Patient has no other medical complaints. LMP: 06/17/17 PCP: Dr. Clara Nogueira Time Seen by Provider: 07/04/17 09:11 Chief Complaint (Nursing): Chest Pain History Per: Patient, [place] Nailer ([id number]) History/Exam Limitations: no limitations Onset/Duration Of Symptoms: Days (2) Current Symptoms Are (Timing): Still Present Quality: "Pain" Past Medical History Reviewed: Historical Data, Nursing Documentation, Vital Signs Vital Signs: Last Vital Signs Temp 97.7 F 07/04/17 08:39 Pulse 92 H 07/04/17 11:40 Resp 14 07/04/17 11:40 BP 112/62 07/04/17 11:40 Pulse Ox 100 07/04/17 11:54 - Medical History PMH: Rheumatoid Arthritis (as per patient) Denies: Chronic Kidney Disease Other PMH: Lupus Surgical History: Appendectomy, - [facility] Procedures DRAINAGE OF LEFT PLEURAL CAVITY, PERCUTANEOUS APPROACH (02/22/17) Family History: States: Unknown Family Hx - Social History Hx Tobacco Use: No Hx Alcohol Use: No Hx Substance Use: No - Immunization History Hx Tetanus Toxoid Vaccination: No Hx Influenza Vaccination: No Hx Pneumococcal Vaccination: No Review Of Systems Except As Marked, All Systems Reviewed And Found Negative. Constitutional: Negative for: Fever Gastrointestinal: Negative for: Vomiting Physical Exam - Physical Exam Additional Physical Exam Comments: Constitutional: No acute distress. Head: Normocephalic. Atraumatic. Eyes: PERRL. ENT: Moist mucous membranes. No pharyngeal erythema. No tonsilar exudate. Neck: Supple. No nuchal rigidity. Cardiovascular: Borderline tachycardic. Radial pulse 2+ bilaterally. Chest: No reproducible chest tenderness. Respiratory: Clear to auscultation bilaterally. GI: Soft. Nontender. Nondistended. Back: No CVA tenderness. Musculoskeletal: No tenderness or swelling of extremities. Skin: No rash. Neurologic: Alert, no focal deficit. ED Course And Treatment - Laboratory Results Result Diagrams: 07/04/17 10:09 07/04/17 10:09 O2 Sat by Pulse Oximetry: 100 (RA) Pulse Ox Interpretation: Normal Medical Decision Making Medical Decision Making: Impression: Chest pain, shortness of breath and throat pain x 2 days Plan: -- Labs -- CXR -- Toradol 30 mg IV -- Urinalysis -- Urine HCG Time: 1049 CXR FINDINGS: LUNGS: No active pulmonary disease. PLEURA: No significant pleural effusion identified. No pneumothorax apparent. CARDIOVASCULAR: Normal. OSSEOUS STRUCTURES: No significant abnormalities. VISUALIZED UPPER ABDOMEN: Normal. OTHER FINDINGS: None. IMPRESSION: No active disease. IMPRESSION: Extensive bilateral axillary lymphadenopathy ; correlate clinically. No evidence of pulmonary embolism. Time: 1137 CT Chest FINDINGS: PULMONARY ARTERIES: Unremarkable. No pulmonary embolism. AORTA: No acute findings. No thoracic aortic aneurysm. LUNGS: Unremarkable. No nodule, mass or pulmonary consolidation. PLEURAL SPACES: Minimal pleural thickening at the left base. HEART: Unremarkable. No cardiomegaly. No significant pericardial effusion. LYMPH NODES: Extensive bilateral axillary lymphadenopathy ; correlate clinically. BONES, CHEST WALL: Unremarkable. No fracture or destructive lesion OTHER FINDINGS: Unremarkable. IMPRESSION: Extensive bilateral axillary lymphadenopathy ; correlate clinically. No evidence of pulmonary embolism. EKG NSR 100 bpm, no ST/T wave changes. Dr. Nogueira accepts patient to his service. Disposition Discussed With : Lizabeth Nogueira Doctor Will See Patient In The: Hospital - Disposition Disposition: HOSPITALIZED Disposition Time: 12:20 Condition: FAIR Forms: [employer] ([place]) - POA Core Measure Indicators: Chest Pain - Clinical Impression Clinical Impression: Chest pain - Scribe Statement The provider has reviewed the documentation as recorded by the Gopalibe (Chica Maya) Provider Attestation: All medical record entries made by the Gopalibleyda were at my direction and personally dictated by me. I have reviewed the chart and agree that the record accurately reflects my personal performance of the history, physical exam, medical decision making, and the department course for this patient. I have also personally directed, reviewed, and agree with the discharge instructions and disposition.
[2017-07-04 10:17] LABS: BASO % 0.4 % (0.0-2.0); EOS % 0.1 % (0.0-4.0); HEMOGLOBIN 12.1 g/dL (11.0-16.0); MEAN CELL VOLUME 79.4 fL (81.0-99.0); MEAN CORPUSCULAR HEMOGLOBIN 26.4 pg (27.0-31.0); MEAN CORPUSCULAR HGB CONC 33.2 g/dL (33.0-37.0); MEAN PLATELET VOLUME 9.7 fL (7.2-11.7); MONO # 0.5 K/uL (0.0-0.8); MONO % 7.7 % (0.0-10.0); NEUT # 5.3 K/uL (1.8-7.0); NEUT % 77.8 % (50.0-75.0); RBC 4.59 Mil/uL (3.80-5.20); RED CELL DISTRIBUTION WIDTH 14.2 % (11.5-14.5); WHITE BLOOD COUNT 6.9 K/uL (4.8-10.8)
[2017-07-04 10:23] LABS: INR 1.1; PROTHROMBIN TIME 12.7 SECONDS (9.7-12.2)
[2017-07-04 10:28] LABS: HCG,QUALITATIVE URINE NEGATIVE (NEGATIVE)
[2017-07-04 10:31] LABS: SQUAMOUS EPITHIAL 7 /hpf (0-5); URINE BACTERIA RARE (<OCC); URINE BILIRUBIN NEGATIVE (NEGATIVE); URINE BLOOD 1+ (NEGATIVE); URINE CLARITY Hazy (Clear); URINE COLOR Yellow (YELLOW); URINE GLUCOSE (UA) NORMAL (Normal); URINE LEUKOCYTE ESTERASE NEG Leu/uL (Negative); URINE PROTEIN NEGATIVE (NEGATIVE); URINE UROBILINOGEN NORMAL mg/dL (0.2-1.0)
[2017-07-04 10:39] LABS: ALB/GLOB RATIO 0.8 (1.0-2.1); ALBUMIN 3.9 g/dL (3.5-5.0); ALT/SGPT 25 U/L (9-52); AST/SGOT 33 U/L (14-36); BLOOD UREA NITROGEN 7 mg/dL (7-17); CALCIUM 8.8 mg/dl (8.6-10.4); GFR AFRICAN-AMERICAN > 60; GFR NON-AFRICAN AMERICAN > 60; LIPASE 74 U/L (23-300)
[2017-07-04 10:45] LABS: B-TYPE NATRIURETIC PEPTIDE 211 pg/mL (0-450)
[2017-07-04 10:49] LABS: CK-MB < 0.22 ng/mL (0.0-3.38)
--- NOTE | 2017-07-04 10:51 | RAD ---
HISTORY: cp, h/o pleural effusion COMPARISON: 06/07/2017 TECHNIQUE: Chest PA and lateral FINDINGS: LUNGS: No active pulmonary disease. PLEURA: No significant pleural effusion identified. No pneumothorax apparent. CARDIOVASCULAR: Normal. OSSEOUS STRUCTURES: No significant abnormalities. VISUALIZED UPPER ABDOMEN: Normal. OTHER FINDINGS: None. IMPRESSION: No active disease.
[2017-07-04] MEDS ORDERED: Iodixanol 320 MG/ML 100 ML BOTTLE IV ONE (10:57)
--- NOTE | 2017-07-04 11:49 | CT ---
PROCEDURE: CT Chest with contrast (Pulmonary Angiogram) HISTORY: chest pain, dyspnea COMPARISON: None available. TECHNIQUE: Axial computed tomography images were obtained of the chest in the pulmonary arterial phase of enhancement. Coronal and sagittal reformatted images were created and reviewed. Intravenous contrast dose: Radiation dose: Total exam DLP = mGy-cm. This CT exam was performed using one or more of the following dose reduction techniques: Automated exposure control, adjustment of the mA and/or kV according to patient size, and/or use of iterative reconstruction technique. FINDINGS: PULMONARY ARTERIES: Unremarkable. No pulmonary embolism. AORTA: No acute findings. No thoracic aortic aneurysm. LUNGS: Unremarkable. No nodule, mass or pulmonary consolidation. PLEURAL SPACES: Minimal pleural thickening at the left base. HEART: Unremarkable. No cardiomegaly. No significant pericardial effusion. LYMPH NODES: Extensive bilateral axillary lymphadenopathy ; correlate clinically. BONES, CHEST WALL: Unremarkable. No fracture or destructive lesion OTHER FINDINGS: Unremarkable. IMPRESSION: Extensive bilateral axillary lymphadenopathy ; correlate clinically. No evidence of pulmonary embolism.
--- NOTE | 2017-07-04 18:19 | CP.PCM.HP ---
Past Patient History - Past Medical History & Family History Past Medical History?: Yes - Past Social History Smoking Status: Never Smoked - CARDIAC Hx Cardiac Disorders: No - PULMONARY Hx Respiratory Disorders: No - NEUROLOGICAL Hx Neurological Disorder: No - HEENT Hx HEENT Problems: No - RENAL Hx Chronic Kidney Disease: No - ENDOCRINE/METABOLIC Hx Endocrine Disorders: No Hx Systemic Lupus Erythematosus: Yes - HEMATOLOGICAL/ONCOLOGICAL Hx Blood Disorders: No - INTEGUMENTARY Hx Dermatological Problems: No - MUSCULOSKELETAL/RHEUMATOLOGICAL Hx Rheumatoid Arthritis: Yes (as per patient) - GASTROINTESTINAL Hx Gastrointestinal Disorders: No - GENITOURINARY/GYNECOLOGICAL Hx Genitourinary Disorders: No - PSYCHIATRIC Hx Substance Use: No - SURGICAL HISTORY Hx Appendectomy: Yes - ANESTHESIA Hx Anesthesia: Yes Hx Anesthesia Reactions: No Meds Allergies/Adverse Reactions: Allergies Allergy/AdvReac Type Severity Reaction Status Date / Time No Known Allergies Allergy Verified 07/04/17 08:37 Physical Exam - Constitutional Appears: Well - Head Exam Head Exam: ATRAUMATIC, NORMAL INSPECTION, NORMOCEPHALIC - Eye Exam Eye Exam: EOMI, Normal appearance, PERRL Pupil Exam: NORMAL ACCOMODATION, PERRL - ENT Exam ENT Exam: Mucous Membranes Moist, Normal Exam - Neck Exam Neck exam: Positive for: Normal Inspection - Respiratory Exam Respiratory Exam: Decreased Breath Sounds - Cardiovascular Exam Cardiovascular Exam: REGULAR RHYTHM, +S1, +S2 - GI/Abdominal Exam GI & Abdominal Exam: Diminished Bowel Sounds, Soft - Rectal Exam Rectal Exam: Deferred Results - Vital Signs Recent Vital Signs: Last Vital Signs Temp 98.6 F 07/04/17 15:00 Pulse 115 H 07/04/17 16:00 Resp 20 07/04/17 15:00 BP 113/72 07/04/17 15:00 Pulse Ox 100 07/04/17 15:00 - Labs Result Diagrams: 07/04/17 10:09 07/04/17 10:09 Labs: Laboratory Results - last 24 hr 07/04/17 07/04/17 07/04/17 10:09 10:09 10:09 WBC 6.9 RBC 4.59 Hgb 12.1 Hct 36.5 MCV 79.4 L MCH 26.4 L MCHC 33.2 RDW 14.2 Plt Count 202 MPV 9.7 Neut % (Auto) 77.8 H Lymph % (Auto) 14.0 L [place] % (Auto) 7.7 Eos % (Auto) 0.1 Baso % (Auto) 0.4 Neut # (Auto) 5.3 Lymph # (Auto) 1.0 [place] # (Auto) 0.5 Eos # (Auto) 0.0 Baso # (Auto) 0.0 PT 12.7 H INR 1.1 APTT 32 Sodium 139 Potassium 3.9 Chloride 102 Carbon Dioxide 24 Anion Gap 18 BUN 7 Creatinine 0.7 Est GFR ( Amer) > 60 Est GFR (Non-Af Amer) > 60 Random Glucose 91 Calcium 8.8 Total Bilirubin 0.8 AST 33 ALT 25 Alkaline Phosphatase 77 Total Creatine Kinase 48 CK-MB (Mass) < 0.22 Troponin I < 0.0120 NT-Pro-B Natriuret Pep 211 Total Protein 8.9 H Albumin 3.9 Globulin 5.0 H Albumin/Globulin Ratio 0.8 L Lipase 74 Urine Color Urine Clarity Urine pH Ur Specific [place] Urine Protein Urine Glucose (UA) Urine Ketones Urine Blood Urine Nitrate Urine Bilirubin Urine Urobilinogen Ur Leukocyte Esterase Urine WBC (Auto) Urine RBC (Auto) Ur Squamous Epith Cells Urine Bacteria Urine HCG, Qual 07/04/17 10:09 WBC RBC Hgb Hct MCV MCH MCHC RDW Plt Count MPV Neut % (Auto) Lymph % (Auto) [place] % (Auto) Eos % (Auto) Baso % (Auto) Neut # (Auto) Lymph # (Auto) [place] # (Auto) Eos # (Auto) Baso # (Auto) PT INR APTT Sodium Potassium Chloride Carbon Dioxide Anion Gap BUN Creatinine Est GFR ( Amer) Est GFR (Non-Af Amer) Random Glucose Calcium Total Bilirubin AST ALT Alkaline Phosphatase Total Creatine Kinase CK-MB (Mass) Troponin I NT-Pro-B Natriuret Pep Total Protein Albumin Globulin Albumin/Globulin Ratio Lipase Urine Color Yellow Urine Clarity Hazy Urine pH 7.0 Ur Specific [place] 1.010 Urine Protein Negative Urine Glucose (UA) Normal Urine Ketones Negative Urine Blood 1+ H Urine Nitrate Negative Urine Bilirubin Negative Urine Urobilinogen Normal Ur Leukocyte Esterase Neg Urine WBC (Auto) 1 Urine RBC (Auto) < 1 Ur Squamous Epith Cells 7 H Urine Bacteria Rare Urine HCG, Qual Negative
--- NOTE | 2017-07-04 23:44 | CARD ---
APPROVED REPORT EKG Measurement Heart [id number] <Conclusion> Sinus rhythm with short [place] Otherwise normal ECG
[2017-07-05 09:28] LABS: ALB/GLOB RATIO 0.8 (1.0-2.1); ALBUMIN 3.6 g/dL (3.5-5.0); ALT/SGPT 24 U/L (9-52); AST/SGOT 26 U/L (14-36); BLOOD UREA NITROGEN 9 mg/dL (7-17); CALCIUM 8.8 mg/dl (8.6-10.4); GFR AFRICAN-AMERICAN > 60; GFR NON-AFRICAN AMERICAN > 60
--- NOTE | 2017-07-05 09:55 | CP.PCM.PN ---
Subjective - Date & Time of Evaluation Date of Evaluation: 07/05/17 Time of Evaluation: 09:48 - Subjective Subjective: PGY2 progress note for Dr. Nogueira 27 year old female with past medical history of lupud and rheumatoid arthiritis presents for chest pain that began 2 days ago. Patient states pain began all of a sudden while she was just sitting at home. Pain is located substernally and associated with deep breaths. Patient denies having any cough, F/C, chest congestion, LE pain or swelling, recent travels, control use or hx of blood clots. Patient's initial troponins were negative. EKG showed NSR with some T wave changes in V1-V2. CTA of chest was negative for PE. Pt seen and examined at bedside. No acute events overnight. Pt continues to c/ o chest pain radiating up to her throat. Denies having any radiation to back. Pt states that she has a hard time swallowing food due to "swelling in her neck ". Denies having any neck pain or limited ROM in the neck. Later in the morning, patient is noted to be tachy with HR of 120s and BP of 99/ 66. Accucheck showed BS of 92. Patient only c/o chest pain substernally. Denies having any lightheadedness. PMHx: stated above Social: No tobacco, ETOH or drug use FHx: mother pericarditis Objective - Vital Signs/Intake and Output Vital Signs (last 24 hours): Temp Pulse Resp BP Pulse Ox 99.2 F 110 H 18 98/65 L 99 07/05/17 07:30 07/05/17 07:30 07/05/17 07:30 07/05/17 07:30 07/05/17 07:30 - Medications Medications: Current Medications Acetaminophen (Tylenol 325mg Tab) 650 mg PO Q6 PRN PRN Reason: Pain, moderate (4-7) Last Admin: 07/04/17 20:54 Dose: 650 mg Hydroxychloroquine Sulfate (Plaquenil) 200 mg PO BID [facility] PRN Reason: Protocol Last Admin: 07/04/17 17:32 Dose: 200 mg - Labs Labs: 07/04/17 10:09 07/05/17 09:09 PT 12.7 SECONDS (9.7-12.2) H 07/04/17 10:09 INR 1.1 07/04/17 10:09 APTT 32 SECONDS (21-34) 07/04/17 10:09 - Constitutional Appears: Non-toxic, No Acute Distress - Head Exam Head Exam: ATRAUMATIC - ENT Exam ENT Exam: Mucous Membranes Dry - Neck Exam Neck Exam: Full ROM, Normal Inspection. absent: Lymphadenopathy, Tenderness, Thyromegaly - Respiratory Exam Respiratory Exam: Clear to Ausculation Bilateral. absent: Accessory Muscle Use , Rales, Rhonchi, Wheezes - Cardiovascular Exam Cardiovascular Exam: REGULAR RHYTHM, +S1, +S2. absent: Gallop, Rubs, Murmur - GI/Abdominal Exam GI & Abdominal Exam: Soft, Normal Bowel Sounds. absent: Distended, Firm, Guarding, Rigid, Tenderness, Organomegaly - Extremities Exam Extremities Exam: absent: Pedal Edema, Tenderness - Neurological Exam Neurological Exam: Alert, Awake, Oriented x3 - Psychiatric Exam Psychiatric exam: Normal Affect, Normal Mood - Skin Skin Exam: Dry, Intact, Normal Color, Warm Assessment and Plan - Assessment and Plan (Free Text) Assessment: 27 year old female with past medical history of lupus and RA is admitted for CP. Initial trop were negative. EKG was NSR with some T wave inversions in V1- V2. CTA of chest showed no evidence of PE but did show bilateral axillay LAD. Chest pain - Patient's MAU score is 0 with 5% risk at 14 days - Will trend trops and EKG - Chest pain may be related to either esophagus (c/o inability to swallow due to "swelling") or thyroid - will check TSH - Will consider getting Barium swallow study to assess for esophageal issues Axillary LAD - May be due to lupus - Will continue to monitor Hypotension - Pt given half liter bolus of D5/NS Prophylaxis - SCDs, Lovenox SC QD - GI prophylaxis not indicated Case will be discussed with attending, Dr. Nogueira All orders and management per Dr. Nogueira
[2017-07-05] MEDS: Enoxaparin 30 mg Syringe SC SCH (10:23)
[2017-07-05 11:18] LABS: BASO % 0.2 % (0.0-2.0); EOS % 0.2 % (0.0-4.0); HEMOGLOBIN 11.8 g/dL (11.0-16.0); LYMPH # 0.6 K/uL (1.0-4.3); LYMPH % 10.1 % (20.0-40.0); MEAN CELL VOLUME 79.1 fL (81.0-99.0); MEAN CORPUSCULAR HEMOGLOBIN 26.1 pg (27.0-31.0); MEAN PLATELET VOLUME 10.2 fL (7.2-11.7); MONO # 0.4 K/uL (0.0-0.8); MONO % 6.8 % (0.0-10.0); NEUT # 5.2 K/uL (1.8-7.0); NEUT % 82.7 % (50.0-75.0); RBC 4.51 Mil/uL (3.80-5.20); RED CELL DISTRIBUTION WIDTH 14.7 % (11.5-14.5); WHITE BLOOD COUNT 6.3 K/uL (4.8-10.8)
[2017-07-05 11:20] LABS: INR 1.3; PROTHROMBIN TIME 14.3 SECONDS (9.7-12.2)
--- NOTE | 2017-07-05 19:00 | CP.PCM.PN ---
Subjective - Date & Time of Evaluation Date of Evaluation: 07/05/17 Time of Evaluation: 09:20 - Subjective Subjective: clinically same Objective - Vital Signs/Intake and Output Vital Signs (last 24 hours): Temp Pulse Resp BP Pulse Ox 98.5 F 101 H 18 109/72 100 07/05/17 15:22 07/05/17 16:00 07/05/17 15:22 07/05/17 15:22 07/05/17 15:22 Intake and Output: 07/05/17 07/06/17 18:59 06:59 Intake Total 240 Balance 240 - Medications Medications: Current Medications Acetaminophen (Tylenol 325mg Tab) 650 mg PO Q6 PRN PRN Reason: Pain, moderate (4-7) Last Admin: 07/05/17 10:20 Dose: 650 mg Enoxaparin Sodium (Lovenox) 30 mg SC DAILY [facility] Last Admin: 07/05/17 10:23 Dose: 30 mg Hydroxychloroquine Sulfate (Plaquenil) 200 mg PO BID [facility] PRN Reason: Protocol Last Admin: 07/05/17 17:45 Dose: 200 mg Pneumococcal Polyvalent Vaccine (Pneumovax 23 Vaccine) 0.5 ml IM .ONCE ONE Stop: 07/06/17 10:01 - Labs Labs: 07/05/17 10:56 07/05/17 09:09 PT 14.3 SECONDS (9.7-12.2) H 07/05/17 10:56 INR 1.3 07/05/17 10:56 APTT 33 SECONDS (21-34) 07/05/17 10:56 - Constitutional Appears: Well - Head Exam Head Exam: ATRAUMATIC, NORMAL INSPECTION, NORMOCEPHALIC - Eye Exam Eye Exam: EOMI, Normal appearance, PERRL Pupil Exam: NORMAL ACCOMODATION, PERRL - ENT Exam ENT Exam: Mucous Membranes Moist, Normal Exam - Neck Exam Neck Exam: Full ROM, Normal Inspection. absent: Lymphadenopathy - Respiratory Exam Respiratory Exam: Decreased Breath Sounds - Cardiovascular Exam Cardiovascular Exam: REGULAR RHYTHM, +S1 - GI/Abdominal Exam GI & Abdominal Exam: Soft, Diminished Bowel Sounds - Rectal Exam Rectal Exam: Deferred
[2017-07-06 04:34] VITALS: O2SAT 99
[2017-07-06 07:43] LABS: ALB/GLOB RATIO 0.7 (1.0-2.1); ALBUMIN 3.3 g/dL (3.5-5.0); ALT/SGPT 12 U/L (9-52); AST/SGOT 32 U/L (14-36); BLOOD UREA NITROGEN 12 mg/dL (7-17); CALCIUM 8.7 mg/dl (8.6-10.4); GFR AFRICAN-AMERICAN > 60; GFR NON-AFRICAN AMERICAN > 60
[2017-07-06 07:49] LABS: BASO % 0.2 % (0.0-2.0); EOS # 0.1 K/uL (0.0-0.7); EOS % 2.2 % (0.0-4.0); LYMPH # 0.6 K/uL (1.0-4.3); LYMPH % 20.6 % (20.0-40.0); MEAN CELL VOLUME 79.4 fL (81.0-99.0); MEAN CORPUSCULAR HEMOGLOBIN 26.1 pg (27.0-31.0); MEAN CORPUSCULAR HGB CONC 32.9 g/dL (33.0-37.0); MEAN PLATELET VOLUME 10.2 fL (7.2-11.7); MONO # 0.3 K/uL (0.0-0.8); NEUT # 1.8 K/uL (1.8-7.0); NRBC % 0.1 % (0.0-2.0); RBC 4.2 Mil/uL (3.80-5.20); RED CELL DISTRIBUTION WIDTH 14.5 % (11.5-14.5)
[2017-07-06 07:52] LABS: WHITE BLOOD COUNT 2.8 K/uL (4.8-10.8)
[2017-07-06 08:48] VITALS: RESP 18
[2017-07-06] MEDS: Enoxaparin 30 mg Syringe SC SCH (09:02)
[2017-07-06] MEDS ORDERED: Barium Sulfate for Susp 96% w/w 176g Bottle PR ONE (09:16)
[2017-07-06] MEDS ORDERED: Barium Sulfate for Susp 98% w/w 340g Bottle ONE (09:16)
[2017-07-06] MEDS ORDERED: Pneumococcal 23-Valent Vaccine IM ONE (10:00)
--- NOTE | 2017-07-06 13:44 | RAD ---
PROCEDURE: Double-contrast esophagram HISTORY: Dysphagia COMPARISON: None available. TECHNIQUE: Fluoroscopic evaluation of the esophagus was performed following administration of oral contrast. FINDINGS: Esophagus: Unremarkable, without gross mucosal abnormality, mass lesion, stricture or obstruction. Hiatal hernia: None. Reflux: Moderate to the level of the thoracic esophagus. . IMPRESSION: Moderate gastroesophageal reflux to the level of the mid thoracic esophagus. Correlation with upper GI endoscopy may be helpful if clinically indicated.
--- NOTE | 2017-07-06 13:48 | CP.PCM.PN ---
Subjective - Date & Time of Evaluation Date of Evaluation: 07/06/17 Time of Evaluation: 09:10 - Subjective Subjective: Medicine progress note for Dr. Nogueira's service Patient seen and examined prior to barium swallow study. Patient currently denying throat pain or pain with swallowing. No acute events overnight per nursing report. Objective - Vital Signs/Intake and Output Vital Signs (last 24 hours): Temp Pulse Resp BP Pulse Ox 97.8 F 76 18 100/64 99 07/06/17 08:47 07/06/17 08:47 07/06/17 08:47 07/06/17 08:47 07/06/17 08:47 - Medications Medications: Current Medications Acetaminophen (Tylenol 325mg Tab) 650 mg PO Q6 PRN PRN Reason: Pain, moderate (4-7) Last Admin: 07/05/17 10:20 Dose: 650 mg Enoxaparin Sodium (Lovenox) 30 mg SC DAILY [facility] Last Admin: 07/06/17 09:02 Dose: 30 mg Hydroxychloroquine Sulfate (Plaquenil) 200 mg PO BID [facility] PRN Reason: Protocol Last Admin: 07/06/17 09:02 Dose: 200 mg - Labs Labs: 07/06/17 07:15 07/06/17 07:15 PT 14.3 SECONDS (9.7-12.2) H 07/05/17 10:56 INR 1.3 07/05/17 10:56 APTT 33 SECONDS (21-34) 07/05/17 10:56 - Constitutional Appears: No Acute Distress - Head Exam Head Exam: ATRAUMATIC, NORMOCEPHALIC - Eye Exam Eye Exam: EOMI - ENT Exam ENT Exam: Mucous Membranes Moist - Neck Exam Neck Exam: absent: Lymphadenopathy - Respiratory Exam Respiratory Exam: Clear to Ausculation Bilateral, NORMAL BREATHING PATTERN - Cardiovascular Exam Cardiovascular Exam: +S1, +S2 - GI/Abdominal Exam GI & Abdominal Exam: Soft, Normal Bowel Sounds. absent: Tenderness - Extremities Exam Extremities Exam: Normal Inspection. absent: Pedal Edema - Neurological Exam Neurological Exam: Alert, Awake - Psychiatric Exam Psychiatric exam: Normal Affect - Skin Skin Exam: Warm - Additional Findings Additional findings: axillary lymphadenopathy not palpable on examination Assessment and Plan - Assessment and Plan (Free Text) Assessment: 27 year old female with past medical history of lupus and RA is admitted for CP. Initial trop were negative. EKG was NSR with some T wave inversions in V1- V2. CTA of chest showed no evidence of PE but did show bilateral axillary LAD. Chest pain - Patient's MAU score is 0 with 5% risk at 14 days - Chest pain may be related to either esophagus (c/o inability to swallow due to "swelling") or thyroid - TSH 0.83 - Barium swallow study: moderate gastroesophageal reflux to the level of the mid thoracic esophagus. Correlation with upper GI endoscopy may be helpful if clinically indicated. Axillary Lymphadenopathy - as seen on CTA chest - May be due to lupus - Will continue to monitor Lupus - continue home medication plaquenil 200mg PO BID Hypotension - Pt given half liter bolus of D5/NS Prophylaxis - SCDs, Lovenox SC QD - Pepcid 20mg PO BID for new findings of GERD All management per Dr. Nogueira Patient is stable for discharge home per Dr. Nogueira. Patient is to be discharged with new medication Pepcid twice a day due to new finding of GERD. Patient to follow up with Dr. Nogueira in the office tomorrow 07/07/17 at 3PM. Patient is to return to the hospital if symptoms reoccur or worsen.
[2017-07-06 15:46] VITALS: BP 93/62; PULSE 104; TEMP 98.3
== END 2017-07-06 18:10 | disposition home or self-care (01) ==
LOC: C.ER 08:33 → C.9E 12:21 → C.6T 12:46
PROVIDERS: ADMIT Internal Medicine Nephrology; ATTEND Internal Medicine Nephrology
DX: R07.9 Chest pain, unspecified (principal); M06.9 Rheumatoid arthritis, unspecified; M32.9 Systemic lupus erythematosus, unspecified; R59.0 Localized enlarged lymph nodes; I95.9 Hypotension, unspecified; K21.9 Gastro-esophageal reflux disease without esophagitis
CPT/HCPCS: 36415; 71046; 71275; 74220; 80053; 81001; 82550; 82553; 82948; 83690; 83880; 84443; 84484; 84703; 85025; 85610; 85730; 87086; 93005; 96374; 99285; G0378; J1650; J1885; J7042; Q9967